=== PATIENT | female | born 1955 | race Caucasian/White ===

== ENCOUNTER → 2019-07-08 13:57 | Outpatient (BNVA) | payer MEDICARE, MEDICAID, SELFPAY | PROVIDERS: PCP Nurse Practitioner Family; Visit Provider Nurse Practitioner | DX: G89.29 Other chronic pain (principal); M48.061 Spinal stenosis, lumbar region without neurogenic claudication; M51.06 Intervertebral disc disorders with myelopathy, lumbar region; M47.817 Spondylosis without myelopathy or radiculopathy, lumbosacral region; M53.3 Sacrococcygeal disorders, not elsewhere classified; R20.2 Paresthesia of skin; M25.30 Other instability, unspecified joint; Z79.891 Long term (current) use of opiate analgesic | CPT/HCPCS: 99213; 99214 ==

== ENCOUNTER → 2019-09-02 14:13 | Outpatient (BNVA) | payer MEDICARE, MEDICAID, SELFPAY | PROVIDERS: PCP Nurse Practitioner Family; Visit Provider Nurse Practitioner | DX: G89.29 Other chronic pain (principal); M54.5 Low back pain; F17.210 Nicotine dependence, cigarettes, uncomplicated; Z79.891 Long term (current) use of opiate analgesic | CPT/HCPCS: 99213 ==

== ENCOUNTER → 2019-11-05 14:24 | Outpatient (BNVA) | payer MEDICARE, MEDICAID, SELFPAY | PROVIDERS: PCP Nurse Practitioner Family; Visit Provider Anesthesiology | DX: G89.29 Other chronic pain (principal); M47.817 Spondylosis without myelopathy or radiculopathy, lumbosacral region; M51.06 Intervertebral disc disorders with myelopathy, lumbar region; M48.061 Spinal stenosis, lumbar region without neurogenic claudication; M25.30 Other instability, unspecified joint; M53.3 Sacrococcygeal disorders, not elsewhere classified; F17.210 Nicotine dependence, cigarettes, uncomplicated; Z79.891 Long term (current) use of opiate analgesic | CPT/HCPCS: 99214 ==

== ENCOUNTER → 2020-01-21 12:54 | Outpatient (BNVA) | payer MEDICARE, MEDICAID, SELFPAY | PROVIDERS: PCP Nurse Practitioner Family; Visit Provider Nurse Practitioner | DX: G89.29 Other chronic pain (principal); M51.06 Intervertebral disc disorders with myelopathy, lumbar region; M48.061 Spinal stenosis, lumbar region without neurogenic claudication; F17.210 Nicotine dependence, cigarettes, uncomplicated; Z79.891 Long term (current) use of opiate analgesic | CPT/HCPCS: 99214 ==

== ENCOUNTER → 2020-03-10 11:06 | Outpatient (BNVA) | payer MEDICARE, MEDICAID, SELFPAY | PROVIDERS: PCP Nurse Practitioner Family; Visit Provider Anesthesiology | DX: G89.29 Other chronic pain (principal); M51.06 Intervertebral disc disorders with myelopathy, lumbar region; M48.061 Spinal stenosis, lumbar region without neurogenic claudication; M47.817 Spondylosis without myelopathy or radiculopathy, lumbosacral region; M53.3 Sacrococcygeal disorders, not elsewhere classified; F17.210 Nicotine dependence, cigarettes, uncomplicated; Z79.891 Long term (current) use of opiate analgesic; Z71.6 Tobacco abuse counseling | CPT/HCPCS: 99214 ==

== ENCOUNTER → 2020-05-06 10:09 | Outpatient (BNVA) | payer MEDICARE, MEDICAID, SELFPAY | PROVIDERS: PCP Nurse Practitioner Family; Visit Provider Anesthesiology | DX: G89.29 Other chronic pain (principal); M51.06 Intervertebral disc disorders with myelopathy, lumbar region; M48.061 Spinal stenosis, lumbar region without neurogenic claudication; M47.817 Spondylosis without myelopathy or radiculopathy, lumbosacral region; M53.3 Sacrococcygeal disorders, not elsewhere classified; F17.210 Nicotine dependence, cigarettes, uncomplicated; Z79.891 Long term (current) use of opiate analgesic; Z71.6 Tobacco abuse counseling | CPT/HCPCS: 99214 ==

== ENCOUNTER → 2020-06-17 16:09 | Outpatient (BNVA) | payer MEDICARE, MEDICAID, SELFPAY | PROVIDERS: PCP Nurse Practitioner Family; Visit Provider Internal Medicine Cardiovascular Disease | DX: I50.9 Heart failure, unspecified (principal); M79.89 Other specified soft tissue disorders; I10 Essential (primary) hypertension; E78.5 Hyperlipidemia, unspecified | CPT/HCPCS: 80048; 83735; 83880 ==

== ENCOUNTER 2020-07-01 16:46 | Inpatient (IN) | payer MEDICARE, MEDICAID, SELFPAY ==
[2020-07-01 17:11] VITALS: BP 169/83; PULSE 107; RESP 24; TEMP 37.1; O2SAT 93; BMI 29.2
[2020-07-01 17:21] VITALS: BP 155/84; PULSE 106; RESP 24; O2SAT 93
[2020-07-01] MEDS: sodium chloride 0.9% 1,000 ML 999 ML IV (17:40)
[2020-07-01] MEDS: ondansetron 2 mg/ML SDV 2 mL 4 MG IVP (17:40)
--- NOTE | 2020-07-01 17:46 | ECG_ITS ---
[facility] Test Date: 2020-07-01 Pat Name: Annmarie El Department: Room: Gender: Female Insulation Hoseman: : 1955 Requested By: Jimmy Bauer Order Number: [id number] Ismael MD: Margarito Pearl M.D. Measurements Intervals [place] Rate: 100 P: 53 CO: 194 QRS: 49 QRSD: 101 T: 48 QT: 365 QTc: 471 Interpretive Statements SINUS TACHYCARDIA WITH OCCASIONAL SUPRAVENTRICULAR PREMATURE COMPLEXES INCOMPLETE RIGHT BUNDLE BRANCH BLOCK [90+ ms QRS DURATION, TERMINAL R IN V1/V2, 40+ ms S IN I/aVL/V4/V5/V6] SEPTAL MYOCARDIAL INFARCTION , OF INDETERMINATE AGE [40+ ms Q WAVE IN V1/V2] No previous ECG available for comparison Electronically Signed On 07-02-2020 18:30:10 SLACKLINE OPERATOR by Margarito Pearl M.D. [id number]
[2020-07-01 18:27] LABS: Basophils % 0.1 %; Eosinophils % 0.1 %; Hematocrit 39.9 % (37.0-47.0); Hemoglobin 12.9 g/dL (11.5-15.3); Lymphocytes # 0.8 10^3/uL (0.8-4.8); Lymphocytes % 10.5 %; Mean Corpuscular HGB Conc 32.3 g/dL (30.0-36.0); Mean Corpuscular Hemoglobin 34.9 pg (28.0-34.0); Mean Corpuscular Volume 107.8 fL (81-99); Mean Platelet Volume 11.3 fL (7.4-10.4); Monocytes # 0.4 10^3/uL (0.2-0.9); Monocytes % 5.6 %; Neutrophils # 6.02 10^3/uL (1.8-7.7); Neutrophils % 81.8 %; Nucleated Red Blood Cells % 0 %; Platelet Count 140 10^3/cmm (130-400); White Blood Count 7.4 10^3/uL (4.0-10.0)
[2020-07-01 18:39] LABS: Lactate (Lactic Acid level) 2.2 mmol/L (0.5-2.2)
[2020-07-01 18:41] LABS: Troponin T (5th) Once 22 ng/L (0-10)
[2020-07-01 18:47] VITALS: BP 155/84; PULSE 106; RESP 20; O2SAT 92
[2020-07-01 18:50] LABS: Albumin Level 2.9 g/dL (3.5-5.2); Alkaline Phosphatase 79 IU/L (35-105); Blood Urea Nitrogen 10 mg/dL (8-23); Calcium 8.2 mg/dL (8.5-10.5); Carbon Dioxide 30 mmol/L (22-29); Chloride 89 mmol/L (98-107); Globulin 2.3 g/dL (1.3-4.6); Glomerular Filtration Rate 72.2 mL/min (90-130); Glucose 326 mg/dL (65-115); Lipase 39 U/L (13-60); NT Pro B Type Natriuretic Pept 1208 pg/mL (0-125); Osmolality Calculated 282 mOsm/kg (285-295); Sodium 130 mmol/L (136-145); Total Bilirubin 0.4 mg/dL (0.15-1.2); Total Protein 5.2 g/dL (6.6-8.7)
[2020-07-01 18:55] LABS: Alanine Aminotransferase 22 U/L (0-33); Anion Gap 14.7 (5-19); Aspartate Amino Transferase 21 U/L (0-32); Potassium 3.7 mmol/L (3.5-5.1)
--- NOTE | 2020-07-01 19:25 | PC.NURSE ---
Patient tried to give urine sample, patient had diarrhea and contaminated sample.
--- NOTE | 2020-07-01 19:42 | CTR_ITS ---
PROCEDURE INFORMATION: Exam: CT Abdomen And Pelvis With Contrast Exam date and time: 07/01/2020 8:11 PM Age: 65 years old Clinical indication: Abdominal pain; Prior surgery; Surgery type: Appy; Additional info: Abdominal pain. Covid+ TECHNIQUE: Imaging protocol: Computed tomography of the abdomen and pelvis with intravenous contrast. Radiation optimization: All CT scans at this facility use at least one of these dose optimization techniques: automated exposure control; mA and/or kV adjustment per patient size (includes targeted exams where dose is matched to clinical indication); or iterative reconstruction. Contrast material: OMNI 300; Contrast volume: 95 ml; Contrast route: INTRAVENOUS (IV); COMPARISON: No relevant prior studies available. RADIATION DOSE METRICS: Total DLP (mGy-cm): 874.25 FINDINGS: Lungs: Multifocal airspace and ground-glass opacities are noted in the lungs compatible with the history of COVID-19 pneumonia. Heart: There is a small pericardial fluid collection present. The heart is enlarged. There is incidental lipomatosis infiltration of the intra-atrial septum of the heart. Mediastinal space: A small hiatal hernia is present. Liver: There is a diffuse decrease in hepatic parenchymal density, consistent with fatty infiltration. Gallbladder and bile ducts: Normal. No calcified stones. No ductal dilation. Pancreas: Normal. No ductal dilation. Spleen: Normal. No splenomegaly. Adrenal glands: Normal. No mass. Kidneys and ureters: There is no evidence of hydronephrosis. There is no evidence of renal calcifications. There is nonspecific inflammatory perinephric stranding. Stomach and bowel: There is no evidence of intestinal perforation or obstruction. There is no evidence of colitis/diverticulitis. Appendix: The appendix is not definitively identified. However, there is no CT evidence of a right lower quadrant inflammatory process. Intraperitoneal space: Unremarkable. No free air. No significant fluid collection. Vasculature: Unremarkable.No abdominal aortic aneurysm. Lymph nodes: Unremarkable.No enlarged lymph nodes. Urinary bladder: Unremarkable as visualized. Reproductive: There is a single benign fibroid in the uterus. The uterus, ovaries and adnexa are otherwise unremarkable. Bones/joints: There are moderate degenerative changes in the spine. There is a transitional lumbosacral junction and mild degenerative anterolisthesis of L5 on S1. Soft tissues: There is a fat-containing umbilical hernia. CT/CT abdomen pelvis w con* [id number] IMPRESSION: 1. Multifocal airspace and ground-glass opacities are noted in the lungs compatible with the history of COVID-19 pneumonia. 2. No acute abnormality is identified in the abdomen or pelvis. Radiation Dose CTDIVOL = (mGy): DLP = 874.25 (mGy-cm)
--- NOTE | 2020-07-01 19:43 | W.ED.NAVMDI ---
HPI - Nausea/Vomiting/Diarrhea General: Chief complaint: Nausea/Vomiting/Diarrhea Stated complaint: covid+/unable to eat Time Seen by Provider: 07/01/20 17:09 History of Present Illness: HPI Narrative: The patient is a 65-year-old female with past medical history of chronic low back pain who comes to the ER after being diagnosed with Covid 2 days ago. She was admitted at [facility] and says that they were worried about her potassium. She was discharged today and came here after she went home and still did not feel well. Her daughter reported that she was not behaving right. MD elicited complaint: nausea, vomiting, diarrhea and abdominal pain Associated nausea: Yes Associated abdominal pain: Yes Location of pain: Diffuse Severity: moderate Quality: cramping Exacerbating factors: none Associated symtoms: Reports cough, fatigue, headache(s), myalgias, nausea, short of breath and weakness; Denies anxiety, change in vision or chest pain Review of Systems General: Reports: 10 or more systems reviewed and unremarkable except in HPI and below Const: Reports: fever(s), chills, body aches and fatigue Eyes: Denies: change in vision, blurry vision or eye redness ENMT: Denies: throat pain, swelling of lips/tongue, ear or mastoid pain or nasal congestion Card: Denies: chest pain Resp: Denies: dyspnea, productive cough or non-productive cough GI: Reports: nausea : Denies: flank pain, difficulty voiding, urinary frequency or urinary urgency Musc: Denies: neck pain, back pain, extremity pain, joint pain, joint redness, limited range of motion or muscle weakness Skin/Breast: Denies: rash, pruritus, erythema, skin pain or skin tenderness Neuro: Reports: headache(s) Psych: Denies: anxiety or depression Endo: Denies: polyuria All/Imm: Denies: urticaria, throat swelling or tongue swelling PFSH ED PFSH: Medical History (Updated 07/01/20 @ 22:08 by Jimmy Bauer MD) Chronic low back pain Encounter for long-term use of opiate analgesic Hyperlipidemia 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 Joint instability Lumbosacral spondylosis without myelopathy Paresthesia of bilateral legs Sacroiliac pain Spinal stenosis of lumbar region Surgical History S/P appendectomy Family History Grandmother Diabetes Cancer Grandfather Diabetes Cancer Social History Smoking and tobacco status: current every day smoker cigarettes Packs smoked per day: 1 [ Other cigarette details: DOWN FROM 1 PPD ] Alcohol intake: never Marital status: History of recent travel: No Physical Exam Const: COMMON NORMALS: no acute distress, average body habitus, patient oriented x3, no limitations, healthy appearing, alert and well nourished GENERAL APPEARANCE: cooperative, comfortable, well kempt and well developed ORIENTATION/CONSCIOUSNESS: Yes awake, Yes oriented to person, Yes oriented to place and Yes oriented to time HENMT: COMMON NORMALS: normocephalic, external ears normal and Normal external nose present HEAD & SCALP: normal to inspection and normocephalic NOSE: Normal external nose present EXTERNAL EAR: Yes external ears normal MOUTH: Normal oral and palatal mucosa present THROAT: posterior oropharynx normal Eye: COMMON NORMALS: Equal, round and reactive pupils present and EOMs intact bilaterally GENERAL EYE: appearance normal, both eyes and all related structures PUPIL: Yes Equal, round and reactive pupils present Neck/C-Spine: COMMON NORMALS: full ROM, no lymphadenopathy, no meningeal signs and no JVD GENERAL: Yes normal visual inspection Lymph: LYMPHATIC: no lymphadenopathy noted Chest: COMMONS NORMALS: normal inspection of the chest and normal palpation of entire chest wall Resp: COMMON NORMALS: normal respiratory effort, No retractions, No use of accessory muscles, clear to auscultation bilaterally and percussion normal EFFORT & INSPECTION: Yes able to speak in complete sentences AUSCULTATION: clear to auscultation bilaterally PERCUSSION: percussion normal Cardio: COMMON NORMALS: no JVD, regular rate, regular rhythm, S1 normal heart sound present, S2 normal heart sound present and Peripheral pulses 2+ throughout RATE: regular rate RHYTHM: regular rhythm HEART SOUNDS: S1 normal heart sound present and S2 normal heart sound present PERIPHERAL PULSES: Peripheral pulses 2+ throughout GI: COMMON NORMALS: Normal to inspection, nondistended, normoactive bowel sounds present, Soft to palpation and no masses INSPECTION: Yes normal to inspection PALPATION: Yes Soft to palpation OTHER: Obese. Diffuse abdominal tenderness. : COMMON NORMALS: Yes no CVA tenderness BLADDER/KIDNEY EXAM: Yes no CVA tenderness Back/Pelvis: COMMON NORMALS: no CVA tenderness, thoracic and lumbar spine normal to inspection, no thoracic nor lumbar tenderness and thoraco-lumbar ROM normal Extremity: COMMON NORMALS: normal to inspection, full ROM, capillary refill normal, no joint enlargement and no pedal edema GENERAL: Yes normal exam except as noted Neuro: COMMON NORMALS: patient oriented x3, CN's II-XII intact bilaterally, moves all extremities, no focal motor deficits, no sensory deficits noted and gait normal SENSORIUM/ORIENTATION: Yes alert, Yes oriented to person, Yes oriented to place and Yes oriented to time MENINGEAL SIGNS: Yes no meningeal signs Psych: COMMON NORMALS: mental status grossly normal, Normal thought process present, cooperative, normal affect and speech normal APPEARANCE: Yes well kempt ATTITUDE: Yes calm SPEECH: Yes normal speech THOUGHT PROCESS: Normal thought process present Skin: COMMON NORMALS: no rashes or lesions noted GENERAL SKIN EXAM: no rashes or lesions noted Course Vital Signs: Vital signs: Vital Signs Temperature 98.8 F 07/01/20 17:11 Pulse Rate 98 07/01/20 20:09 Respiratory Rate 17 07/01/20 20:09 Blood Pressure 138/92 07/01/20 20:09 Pulse Oximetry 95 07/01/20 20:09 MDM - Nausea/Vomiting/Diarrhea MDM Narrative: Medical decision making narrative: The patient comes to the ER after being discharged today from [facility] for Covid. She is satting 88% on arrival and was placed on oxygen. She likely requires more length of stay. Discussed with Dr. Mckeon who accepts for admission. Differential Diagnosis: N/V/D differential diagnosis: Likely dehydration Lab Data: Labs: Lab Results 07/01/20 07/01/20 07/01/20 Range/Units 18:05 18:05 18:05 WBC 7.4 (4.0-10.0) 10^3/ uL RBC 3.70 L (4.1-5.3) 10^6/u L Hgb 12.9 (11.5-15.3) g/dL Hct 39.9 (37.0-47.0) % MCV 107.8 H (81-99) fL MCH 34.9 H (28.0-34.0) pg MCHC 32.3 (30.0-36.0) g/dL RDW 15.0 (12.1-15.1) % Plt Count 140 (130-400) 10^3/c mm MPV 11.3 H (7.4-10.4) fL Neut % (Auto) 81.8 % Lymph % (Auto) 10.5 % [place] % (Auto) 5.6 % Eos % (Auto) 0.1 % Baso % (Auto) 0.1 % Neut # (Auto) 6.02 (1.8-7.7) 10^3/u L Lymph # (Auto) 0.8 (0.8-4.8) 10^3/u L [place] # (Auto) 0.4 (0.2-0.9) 10^3/u L Eos # (Auto) 0.0 (0.0-0.8) 10^3/u L Baso # (Auto) 0.0 (0.0-0.1) 10^3/u L Nucleated RBC % (a uto) 0 % Nucleated RBCs # 0.0 /100WBC Sodium 130 L (136-145) mmol/L Potassium 3.7 (3.5-5.1) mmol/L Chloride 89 L (98-107) mmol/L Carbon Dioxide 30 H (22-29) mmol/L Anion Gap 14.7 (5-19) BUN 10 (8-23) mg/dL Creatinine 0.8 (0.5-0.9) mg/dL GFR Calculation 72.2 L (90-130) mL/min Glucose 326 H (65-115) mg/dL Calculated Osmolal ity 282 L (285-295) mOsm/k g Lactate 2.2 (0.5-2.2) mmol/L Calcium 8.2 L (8.5-10.5) mg/dL Total Bilirubin 0.4 (0.15-1.2) mg/dL AST 21 (0-32) U/L ALT 22 (0-33) U/L Alkaline Phosphata se 79 (35-105) IU/L Troponin T Gen 5 n g/L (0-10) ng/L NT-Pro-B Natriuret Pep 1208 H (0-125) pg/mL Total Protein 5.2 L (6.6-8.7) g/dL Albumin 2.9 L (3.5-5.2) g/dL Globulin 2.3 (1.3-4.6) g/dL Lipase 39 (13-60) U/L // Range/Units 18:05 WBC (4.0-10.0) 10^3/ uL RBC (4.1-5.3) 10^6/u L Hgb (11.5-15.3) g/dL Hct (37.0-47.0) % MCV (81-99) fL MCH (28.0-34.0) pg MCHC (30.0-36.0) g/dL RDW (12.1-15.1) % Plt Count (130-400) 10^3/c mm MPV (7.4-10.4) fL Neut % (Auto) % Lymph % (Auto) % [place] % (Auto) % Eos % (Auto) % Baso % (Auto) % Neut # (Auto) (1.8-7.7) 10^3/u L Lymph # (Auto) (0.8-4.8) 10^3/u L [place] # (Auto) (0.2-0.9) 10^3/u L Eos # (Auto) (0.0-0.8) 10^3/u L Baso # (Auto) (0.0-0.1) 10^3/u L Nucleated RBC % (a uto) % Nucleated RBCs # /100WBC Sodium (136-145) mmol/L Potassium (3.5-5.1) mmol/L Chloride (98-107) mmol/L Carbon Dioxide (22-29) mmol/L Anion Gap (5-19) BUN (8-23) mg/dL Creatinine (0.5-0.9) mg/dL GFR Calculation (90-130) mL/min Glucose (65-115) mg/dL Calculated Osmolal ity (285-295) mOsm/k g Lactate (0.5-2.2) mmol/L Calcium (8.5-10.5) mg/dL Total Bilirubin (0.15-1.2) mg/dL AST (0-32) U/L ALT (0-33) U/L Alkaline Phosphata se (35-105) IU/L Troponin T Gen 5 n g/L 22 H (0-10) ng/L NT-Pro-B Natriuret Pep (0-125) pg/mL Total Protein (6.6-8.7) g/dL Albumin (3.5-5.2) g/dL Globulin (1.3-4.6) g/dL Lipase (13-60) U/L Discharge Plan Discharge Patient Disposition: Admitted As Inpatient Clinical Impression: COVID-19, Hypoxia Condition: Stable Coding Level of Care Code ED Telemetry Monitor for Luis Manuelg Fwd Exam Comprehensive
[2020-07-01] MEDS: HYDROcodone-acetaminophen 5-325 mg Tablet 1 TAB PO (20:03)
[2020-07-01 20:09] VITALS: BP 138/92; PULSE 98; RESP 17; O2SAT 95
[2020-07-01] MEDS: iohexol 300 mg/mL 100 mL Btl IV (20:23)
--- NOTE | 2020-07-01 21:30 | PM.HP ---
Providers/Chief Complaint Primary Care Provider: ANDREA Sargent Chief Complaint: covid+/unable to eat History of Present Illness Annmarie El is a 65 year old female who has history of hypothyroidism, panic attacks, was recently started on Lasix for leg swelling, magnesium was added secondary to hypomagnesemia, also on gabapentin and tramadol along [place] presented today for worsening confusion. Patient was recently discharged from [facility] today. Patient is stating that she was tested positive with COVID-19 antigen 4 days ago at [facility]. She was there for 4 days but not sure whether she received any treatment, she is not able to give me any details, she is a poor historian. She was emotionally very labile during my evaluation. turned off oxygen, she was saturating 93 to 94% on room air, but she was very weak and lethargic to ambulate on her own. Patient is stating that her symptoms never improved after her discharge from the [facility]. She was not discharged on any antibiotics, steroids or oxygen. She has been extremely lethargic and fatigued, she lives alone and is very anxious about her COVID-19 pneumonia and worsening weakness. She also gets panic attack thinking she might of this virus and no one will be able to help her. She has a daughter who is willing to take care of her when she is more stable to ambulate Patient is denying chest pain, diarrhea, dysuria, sputum production, endorsing back pain and shortness of breath on exertion Diagnostics in the ER revealed normal hemodynamics, normal CBC and BMP, mild hypokalemia, hyperglycemia, pseudo-hyponatremia, BNP 1200 however clinically does not look fluid overloaded Abdomen pelvis CT scan was done which is unremarkable lower zone of the lungs revealing COVID-19 groundglass opacities bilaterally. At the time my evaluation she was on 1 L nasal cannula, which I turned off, she was saturating 93% on room air. Review of Systems Const: Reports: chills, body aches and fatigue; Denies: fever(s) Eyes: Denies: change in vision ENMT: Reports: hoarseness; Denies: throat pain Card: Reports: dyspnea on exertion; Denies: chest pain, swelling of feet/ankles, syncope, pre-syncope or orthopnea Resp: Reports: dyspnea and non-productive cough; Denies: productive cough GI: Reports: nausea and diarrhea (Patient endorsing chronic diarrhea); Denies: abdominal pain : Denies: flank pain Musc: Reports: back pain Skin/Breast: Denies: lesions Neuro: Reports: weakness in extremities and difficulty walking; Denies: headache(s) Psych: Reports: anxiety, panic attacks, irritability and paranoia Endo: Denies: polyuria Isaias/Lymph: Denies: easy bruising All/Imm: Denies: urticaria Medications/Allergies Home Medications Medication Instructions Recorded Confirmed Last Taken Type budesonide 3 mg 3 mg PO TID each 06/27/19 07/01/20 Unknown History capsule,delayed,extended release levothyroxine 100 mcg capsule 100 mcg PO DAILY 06/27/19 07/01/20 Unknown History simvastatin 20 mg tablet 20 mg PO DAILY 06/27/19 07/01/20 Unknown History venlafaxine 100 mg tablet 100 mg PO BID 06/27/19 07/01/20 Unknown History venlafaxine 25 mg tablet 25 mg PO BID 06/27/19 07/01/20 Unknown History glipizide 5 mg tablet, extended 5 mg PO ONCE tab 07/08/19 07/01/20 Unknown History release 24 hr trazodone 150 mg tablet 150 mg PO BEDTIME tab 07/08/19 07/01/20 Unknown History cyclobenzaprine 10 mg tablet 10 mg PO TID PRN 30 Days #90 tab 05/06/20 07/01/20 Unknown Rx gabapentin 300 mg capsule 300 mg PO TID 30 Days #90 cap 05/06/20 07/01/20 Unknown Rx amlodipine 5 mg tablet 2.5 mg PO DAILY #90 tab 06/17/20 07/01/20 Unknown Rx furosemide 20 mg tablet 20 mg PO DAILY #30 tab 06/17/20 07/01/20 Unknown Rx hydrochlorothiazide 12.5 mg tablet 50 mg .ROUTE .COMPLEX tab 06/17/20 07/01/20 Unknown History potassium chloride 20 mEq 20 meq PO DAILY #30 tab 06/17/20 07/01/20 Unknown Rx tablet,extended release magnesium chloride 64 mg 64 mg PO DAILY #90 tab 06/18/20 07/01/20 Unknown Rx (magnesium chloride) tablet,delayed release azithromycin 500 mg PO DAILY 07/01/20 07/01/20 Unknown History cefdinir 300 mg PO BID 07/01/20 07/01/20 Unknown History hydrocodone-acetaminophen See Rx Instructions .ROUTE .COMPLEX 07/01/20 07/01/20 Unknown History lisinopril 20 mg PO DAILY 07/01/20 07/01/20 Unknown History tramadol See Rx Instructions .ROUTE .COMPLEX 07/01/20 07/01/20 Unknown History Allergies Allergy/AdvReac Type Severity Reaction Status Date / Time Sulfa (Sulfonamide Allergy hives Verified 07/01/20 17:11 Antibiotics) PFSH Acute PFSH: Medical History (Updated 07/02/20 @ 00:53 by Edilberto Mckeon MD) Chronic low back pain Encounter for long-term use of opiate analgesic Hyperlipidemia 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 Joint instability Lumbosacral spondylosis without myelopathy Paresthesia of bilateral legs Sacroiliac pain Spinal stenosis of lumbar region Surgical History S/P appendectomy Family History Grandmother Diabetes Cancer Grandfather Diabetes Cancer Social History Smoking and tobacco status: current every day smoker cigarettes Packs smoked per day: 1 [ Other cigarette details: DOWN FROM 1 PPD ] Alcohol intake: never Marital status: History of recent travel: No Vitals/I&O/Wt Last Vital Signs Temp 98.8 F 07/01/20 17:11 Pulse 98 07/01/20 20:09 Resp 17 07/01/20 20:09 BP 138/92 07/01/20 20:09 Pulse Ox 95 07/01/20 20:09 07/01/20 07/01/20 07/01/20 06:59 14:59 22:59 Intake Total 1000 / 1000 Balance 1000 / 1000 Weight last 48 hrs Weight 74.843 kg Physical Exam Narrative: EXAM NARRATIVE: middle-aged female who appears more than stated age Was laying in right lateral position Saturating 90 to 94% on room air, oxygen was turned off No active chest pain, S1, S2 no murmur appreciated No signs of heart failure lower extremity no edema gangrene or ulcer Bilateral breath sound without adventitious rhonchi or crackles Patient complaining of back pain No signs of cauda equina Abdomen soft nontender bowel sound present Appears very anxious and irritable Emotionally labile No active joint swelling however complaining of back pain EOMI, PERRLA No neurological deficit GCS 15 awake alert oriented x3 Generalized malaise Data : 07/01/20 18:05 07/01/20 18:05 A&P Assessment and plan (1) COVID-19: Status: Acute (2) Hypoxia: Status: Acute (3) Fatigue: Status: Acute Additional A&P Information COVID-19 pneumonia Patient is stating that she was diagnosed 4 days ago at [facility] Currently saturating well on room air at 93 to 94% ever initially she was put on 2 L for hypoxia on arrival I would not repeat Covid antigen testing at this point Patient is not able to give me any details regarding [facility] medical management I would keep her on Decadron for now 6 mg p.o. daily Chest x-ray not done in the ER, will request D-dimer and chest x-ray Acute hypoxic respiratory failure Initially required 2 L however at my evaluation she was saturating 93 to 94% on room air Monitor overnight, home O2 requirement before discharge Rule out PE, will follow up with D-dimer No acute respite distress Fatigue and generalized malaise I will check TSH, she has mild hyponatremia and hypokalemia, she takes hydrochlorothiazide which I will discontinue, she also on multiple psychotropic medications along opioids, I do believe these medications with underlying COVID-19 pneumonia is playing a role for her worsening fatigue Physical therapy evaluation in the morning Low back pain No signs of cauda equina, I would continue [place] for now we will add bowel regimen Reduce gabapentin dose, hold tramadol She has grade 1 anterolisthesis L4-L5 moderate central canal stenosis, central canal stenosis L4-L5 due to disc bulge with anterolisthesis slight impingement of transverse L5 nerve root Hypokalemia: We will give her 20 mEq p.o. KCl Hold hydrochlorothiazide High BNP Rule out PE, echo 2018 reveals ejection fraction 65% without diastolic dysfunction Currently patient is euvolemic, hold Lasix and potassium supplementation at this point Her Lasix was added by cardiology because of her lower extremity edema Hyperglycemia Does not carry diagnosis of diabetes I do believe this hyperglycemia secondary to steroid use, most likely steroids were given at [facility], will check A1c level we will keep her on insulin sliding scale for now Cardiac diet Full code DVT prophylaxis Lovenox Attestations Medical Necessity Statement*: I do believe patient will be discharged in less than 48 hours, overnight monitoring needed because of worsening fatigue, will need home O2 evaluation before discharge, patient lives alone and is very scared to go home because of her active COVID-19 pneumonia and above-mentioned reasons Time Spent in Patient Care: (>than 50% of time spent in counselling and/or direct pt care on unit). 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
--- NOTE | 2020-07-01 22:00 | PC.NURSE ---
Patient is anxious. Will turn stone circular sawyer light and ask for help. When asking the patient what she needs help with she states she doesn't know. Patient states she is anxious.
[2020-07-01 23:43] VITALS: BP 146/64; PULSE 90; RESP 17; TEMP 36.9; O2SAT 96
[2020-07-02] VITALS (12 sets, daily range): BP systolic 123–164; BP diastolic 69–97; PULSE 80–112; RESP 16–31; TEMP 36.6–37.7; O2SAT 90–98
[2020-07-02 00:36] LABS: Glucose Urine UA 2+ (Normal); Protein Urine Neg (Negative); Specific Gravity, Urine 1.005 (1.005-1.030); Urine Appearance Hazy (CLEAR); Urine Color Yellow (Yellow)
[2020-07-02 00:37] LABS: Add Urine Microscopic? YES; Bacteria Urine 1+ /hpf; Bilirubin Urine Neg (Negative); Blood Urine Neg (Negative); Ketones Urine 1+ (Negative); Leukocyte Esterase Urine 2+ (Negative); Mucus Urine TRACE /hpf; Nitrate Urine Negative (Negative); RBC Urine 0-4 /hpf (0-2); Urobilinogen Urine Norm (Negative); WBC Urine 15-25 /hpf (0-5)
[2020-07-02 00:38] LABS: Add Urine Culture? Yes
[2020-07-02] MEDS: LORazepam 2 mg/mL INJ 1 mL 0.5 MG IVP (01:33)
[2020-07-02] MEDS: potassium chloride ER 20 mEq Tablet PO (01:34)
[2020-07-02] MEDS: enoxaparin 40 mg/0.4 mL Syringe SUBCUT (01:34)
[2020-07-02 02:51] LABS: D Dimer 1.56 ug/mIFEU (0-0.59)
[2020-07-02 02:56] LABS: Estmated Average Glucose 232; Hemoglobin A1C 9.7 % (4.0-6.0)
[2020-07-02 02:58] LABS: Blood Urea Nitrogen 7 mg/dL (8-23); C Reactive Protein 85.1 mg/L (0.0-4.9); Calcium 8.5 mg/dL (8.5-10.5); Carbon Dioxide 38 mmol/L (22-29); Chloride 90 mmol/L (98-107); Glomerular Filtration Rate 84.2 mL/min (90-130); Glucose 193 mg/dL (65-115); Osmolality Calculated 281 mOsm/kg (285-295); Sodium 134 mmol/L (136-145)
[2020-07-02 03:05] LABS: Procalcitonin 0.13 ng/mL (0-0.5); Thyroid Stimulating Hormone 1.54 uIU/mL (0.27-4.20)
[2020-07-02 03:15] LABS: Magnesium 1.3 mg/dL (1.7-2.3)
--- NOTE | 2020-07-02 05:00 | PC.NURSE ---
Patient refusing to wear nasal cannula this morning. Keeps removing telemetry. Patient is alert and appropriate to answering questions. Uses call light frequently. Says she cannot reach her cup which is next to her hand. Patient has overbed table over the bed and she leans on it. Not orthopnic just sitting up in bed. No respiratory distress observed. No complaints of pain presently.
[2020-07-02] MEDS: HYDROcodone-acetaminophen 10-325 mg Tablet 1 TAB PO (06:12)
--- NOTE | 2020-07-02 06:47 | CT_ITS ---
WS: [id number] Exam: CT angio chest PE protcl [id number] Date/Time of Exam: 07/02/2020 6:52 AM Reason For Exam: PE DLP: 528.[address] scans at [facility] use at least one of these dose optimization techniques: automat ed exposure control; mA and/or kV adjustment per patient size (includes targeted exams where dose is matched to clinical indication); or iterative reconstruction. No sign of acute PE. The thoracic aorta is normal in caliber. Mild mediastinal and perihilar lymphade nopathy. No pleural or pericardial effusion seen. The airway is patent. There are scattered patchy gr oundglass infiltrates throughout both lungs suggesting pneumonia. Covid pneumonia could have this livan earance. The lungs are fully expanded. No destructive bone lesions are chest wall defects. CT/CT angio chest PE protcl [id number] IMPRESSION: 1. No indication of acute PE. 2. Scattered groundglass infiltrates noted throughout both lungs suggesting pne umonia. Covid pneumonia can have this appearance. 3. Mild mediastinal and perihilar lymphadenopathy.
--- NOTE | 2020-07-02 07:00 | XR_ITS ---
WS: [id number] Exam: XR chest 1V portable [id number] Date/Time of Exam: 07/02/2020 7:00 AM Reason For Exam: covid No priors. There are patchy groundglass infiltrates throughout the mid and lower lung zones most marked on the l eft. The lungs are fully inflated. Cardiomediastinal structures are unremarkable for technique. No pl eural effusions. Regional bony elements are intact. Monitoring leads superimpose the chest. XR/XR chest 1V portable [id number] IMPRESSION: 1. Bilateral pulmonary infiltrates suggesting pneumonia.
[2020-07-02 07:33] LABS: Glucose Point of Care 193 mg/dL (70-110)
[2020-07-02] MEDS: iohexol 350 mg/mL 100 mL Btl IV (07:48)
[2020-07-02] MEDS: levothyroxine 100 mcg Tablet PO (08:51)
[2020-07-02] MEDS: dexamethasone 4 mg Tablet 6 MG PO (08:51)
[2020-07-02] MEDS: sennosides-docusate Tablet 1 TAB PO (08:52)
[2020-07-02] MEDS: gabapentin 100 mg Capsule PO ×3 (08:52→21:09)
[2020-07-02] MEDS: amlodipine 5 mg Tablet 2.5 MG PO (08:53)
[2020-07-02] MEDS: lisinopril 20 mg Tablet PO (08:53)
[2020-07-02] MEDS: venlafaxine 75 mg Tablet 25 MG PO ×2 (08:53→17:27)
[2020-07-02] MEDS: pneumococcal (23 valent) SDV 0.5 mL IM (08:54)
--- NOTE | 2020-07-02 09:17 | PC.CHAP ---
Pastoral Care Encounter/Spiritual Assessment Type of Contact [] Declined internet webmaster visit [] Patient/Family/Request visit [] Outpatient visit [] Follow-up visit [] Physician referral [] Code/Alert [] Routine visit [] Staff referral [] Actively dying [] Patient sleeping [] Family support [] [] Out of room [] Palliative care [] [] Receiving care in room [] Pre-surgical visit [] Trauma [] Long length of stay [] ICU visit [x] Other: isolation Relational/Emotional Strength [] Patient feels connected with others/family/visitors/staff [] Distress [] Loneliness/isolation [] Abandonment Spirituality of Patient [] Person of Jinny [] Attends Restoration of their Jinny [] Believes in Prayer [] Reads Bible or Jew materials [] There are Spiritual issues to be addressed Mounted Police Interventions [x] Prayer [] Active listening [] Non-anxious presence [] Spiritual/emotional support [] Crisis/trauma care [] Spiritual counseling [] Bereavement support [] Provided bereavement packet [] Provided Bible/devotional materials [] Provided toy/stuffed animal, coloring book to patient or family member [] Provided Communion [] Anointing/[place] [] Salvation [x] Completed spiritual assessment [] Other: Impact on Illness or Injury [] Angry [] Fearful [] Anxious [] Often cries [] Exhaustion [] Unable to work [] Unable to attend pentecostal [] Unable to walk/stand [] Unable to read [] Unable to drive [] Unable to eat/drink [] Unable to sleep [] Unable to be with family [] Patient intubated [] Other: Summary Time spent with patient
[2020-07-02 12:11] LABS: Glucose Point of Care 102 mg/dL (70-110)
[2020-07-02 17:02] LABS: Glucose Point of Care 321 mg/dL (70-110)
--- NOTE | 2020-07-02 17:45 | P.PN_ITS ---
Subjective Subjective: Interval history: T-max 99.3. Dynamically stable. Overnight labs and H&P reviewed. 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: no focal neuro deficits Data : 07/01/20 18:05 07/02/20 02:27 A&P Assessment and plan (1) COVID-19: Status: Acute (2) Hypoxia: Status: Acute (3) Fatigue: Status: Acute Additional A&P Information COVID-19 pneumonia Patient is stating that she was diagnosed 4 days ago at [facility] Currently saturating well at 2 lpm for hypoxia CTA chest without PE, B/L GGOs suggestive of Covid 19 pneumonia Acute hypoxic respiratory failure secondary to covid 19 PNA continue dexamethasone 6mg daily Low back pain No signs of cauda equina She has grade 1 anterolisthesis L4-L5 moderate central canal stenosis, central canal stenosis L4-L5 due to disc bulge with anterolisthesis slight impingement of transverse L5 nerve root Hypokalemia: repleted Hold hydrochlorothiazide High BNP Rule out PE, echo 2018 reveals ejection fraction 65% without diastolic dysfunction Currently patient is euvolemic, hold Lasix and potassium supplementation at this point Her Lasix was added by cardiology because of her lower extremity edema Hyperglycemia: newly diagnosed DM with A1c 9.7, will need insulin on discharge Cardiac diet Full code DVT prophylaxis Lovenox Attestations Medical Necessity Statement*: COVID 19 pneumonia , hypoxia Coding Level of Care Code Acute Editor [place] for Chg Fwd Diagnoses COVID-19 U07.1 Hypoxia R09.02 Fatigue R53.83
[2020-07-02 20:27] LABS: Glucose Point of Care 211 mg/dL (70-110)
[2020-07-02] MEDS: remdesivir 200 MG in sodium chloride 0.9% (100 ml) 100 ML 100 MG IV (21:09)
--- NOTE | 2020-07-02 22:21 | PC.NURSE ---
PT C/O OF SEVERE GEN BODY PAIN. PT HAS CALLED OUT SEVERAL TIMES. WHEN THIS NURSE WENT INTO ROOM TO ASSESS PAIN, PT DENIED PAIN. PT STATES THAT THEY HAVE A HARD TIME SLEEPING AND WANTS SOMETHING FOR PAIN AND SOMETHING TO HELP SLEEP. PT WAS FALLING ASLEEP WHILE TALKING. WILL CONTINUE TO MONITOR.
[2020-07-03] MEDS: enoxaparin 40 mg/0.4 mL Syringe SUBCUT (01:18)
--- NOTE | 2020-07-03 02:44 | PC.NURSE ---
PT RESTING IN BED. PT DENIES PAIN AT THIS TIME. WILL CONTINUE TO MONITOR.
[2020-07-03 04:00] VITALS: BP 159/80; PULSE 80; RESP 26; TEMP 36.8; O2SAT 96
--- NOTE | 2020-07-03 04:20 | PC.NURSE ---
PT WAS ON THE CALL LIGHT FREQUENTLY AT THE BEGINNING OF THE SHIFT, BUT CALMED DOWN. PT DENIES. WILL CONTINUE TO MONITOR.
[2020-07-03 06:43] LABS: Glucose Point of Care 196 mg/dL (70-110)
[2020-07-03 06:55] LABS: Basophils % 0.1 %; Hematocrit 37.5 % (37.0-47.0); Hemoglobin 12.6 g/dL (11.5-15.3); Lymphocytes # 0.9 10^3/uL (0.8-4.8); Lymphocytes % 12.3 %; Mean Corpuscular HGB Conc 33.6 g/dL (30.0-36.0); Mean Corpuscular Hemoglobin 34.2 pg (28.0-34.0); Mean Corpuscular Volume 101.9 fL (81-99); Mean Platelet Volume 10.5 fL (7.4-10.4); Monocytes # 0.6 10^3/uL (0.2-0.9); Monocytes % 8.7 %; Neutrophils % 77.2 %; Nucleated Red Blood Cells % 0 %; Platelet Count 165 10^3/cmm (130-400); Red Blood Count 3.68 10^6/uL (4.1-5.3); Red Cell Distribution Width 14.3 % (12.1-15.1); White Blood Count 7.1 10^3/uL (4.0-10.0)
[2020-07-03 07:07] LABS: Alanine Aminotransferase 18 U/L (0-33); Albumin Level 2.5 g/dL (3.5-5.2); Alkaline Phosphatase 68 IU/L (35-105); Aspartate Amino Transferase 12 U/L (0-32); Blood Urea Nitrogen 10 mg/dL (8-23); Calcium 8.7 mg/dL (8.5-10.5); Carbon Dioxide 33 mmol/L (22-29); Chloride 93 mmol/L (98-107); Globulin 2.8 g/dL (1.3-4.6); Glomerular Filtration Rate 84.2 mL/min (90-130); Glucose 201 mg/dL (65-115); Osmolality Calculated 285 mOsm/kg (285-295); Sodium 135 mmol/L (136-145); Total Bilirubin 0.3 mg/dL (0.15-1.2); Total Protein 5.3 g/dL (6.6-8.7)
[2020-07-03 08:00] VITALS: BP 161/91; PULSE 83; RESP 23; O2SAT 97
[2020-07-03] MEDS: venlafaxine 75 mg Tablet 25 MG PO ×2 (08:03→17:22)
[2020-07-03] MEDS: dexamethasone 4 mg Tablet 6 MG PO (08:05)
[2020-07-03] MEDS: lisinopril 20 mg Tablet PO (08:05)
[2020-07-03] MEDS: gabapentin 100 mg Capsule PO ×3 (08:06→20:23)
[2020-07-03] MEDS: levothyroxine 100 mcg Tablet PO (08:06)
[2020-07-03] MEDS: HYDROcodone-acetaminophen 10-325 mg Tablet 1 TAB PO (08:06)
[2020-07-03] MEDS: amlodipine 5 mg Tablet 2.5 MG PO (08:07)
[2020-07-03 12:08] LABS: Glucose Point of Care 170 mg/dL (70-110)
[2020-07-03] MEDS: lidocaine 1% INJ 20 mL 5 ML IV (12:32)
[2020-07-03] MEDS: potassium chloride premix 100 ML 25 MEQ IV ×2 (12:33→18:59)
[2020-07-03 14:01] VITALS: PULSE 90; RESP 15; O2SAT 96
[2020-07-03 15:02] VITALS: BP 144/69; PULSE 75; RESP 13; TEMP 37.1; O2SAT 98
--- NOTE | 2020-07-03 15:57 | PM.PN ---
Subjective Subjective: Interval history: Saturating 98% on room air today. Patient denies any new complaints. Intermittently noted to be tachycardic with heart rate of 100, patient reports being extremely anxious, cries at the thought of returning home. 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 daily Acute hypoxic respiratory failure secondary to covid 19 PNA continue dexamethasone 6mg daily Low back pain No signs of cauda equina She has grade 1 anterolisthesis L4-L5 moderate central canal stenosis, central canal stenosis L4-L5 due to disc bulge with anterolisthesis slight impingement of transverse L5 nerve root Hypokalemia: repleted with 80 mEq IV Hold hydrochlorothiazide hello Hyperglycemia: newly diagnosed DM with A1c 9.7, will need insulin on discharge blood sugar currently well controlled Cardiac diet Full code DVT prophylaxis Lovenox Attestations Medical Necessity Statement*: COVID 19 pneumonia, on iv remdisivir Coding Level of Care Code Acute Telephonic Rn for [facility] Fw Diagnoses COVID-19 U07.1 Hypoxia R09.02 Fatigue R53.83
[2020-07-03 17:01] LABS: Glucose Point of Care 368 mg/dL (70-110)
[2020-07-03] MEDS: ascorbic acid 500 mg Tablet PO (17:23)
[2020-07-03] MEDS: acetaminophen 325 mg Tablet 650 MG PO (18:02)
[2020-07-03] MEDS: remdesivir 100 MG in sodium chloride 0.9% (100 ml) 100 ML IV (18:03)
[2020-07-03 18:59] VITALS: BP 155/78; PULSE 88; RESP 21; TEMP 37.1; O2SAT 97
[2020-07-03 20:50] LABS: Glucose Point of Care 282 mg/dL (70-110)
[2020-07-03] MEDS: LORazepam 2 mg/mL INJ 1 mL 0.5 MG IVP (22:28)
[2020-07-03 23:40] VITALS: BP 154/62; PULSE 83; RESP 20
[2020-07-04] VITALS (8 sets, daily range): BP systolic 146–172; BP diastolic 61–98; PULSE 78–93; RESP 16–22; TEMP 36.4–36.8; O2SAT 94–99
[2020-07-04] MEDS: enoxaparin 40 mg/0.4 mL Syringe SUBCUT (01:30)
--- NOTE | 2020-07-04 03:18 | PC.NURSE ---
PT HAD AN UNEVENTFUL NIGHT. PT DID C/O OF SOME INCREASED ANXIETY. FREEZER ASSISTANT NURSE GAVE PRN ATIVAN. PT HAS RESTED WITH EYES CLOSED. WILL CONTINUE TO MONITOR.
[2020-07-04 06:24] LABS: Glucose Point of Care 150 mg/dL (70-110)
[2020-07-04 06:44] LABS: Basophils % 0.1 %; Hematocrit 38.1 % (37.0-47.0); Hemoglobin 12.7 g/dL (11.5-15.3); Mean Corpuscular HGB Conc 33.3 g/dL (30.0-36.0); Mean Corpuscular Hemoglobin 34.5 pg (28.0-34.0); Mean Corpuscular Volume 103.5 fL (81-99); Mean Platelet Volume 10.6 fL (7.4-10.4); Monocytes # 0.7 10^3/uL (0.2-0.9); Monocytes % 9.4 %; Neutrophils # 5.82 10^3/uL (1.8-7.7); Neutrophils % 75.1 %; Nucleated Red Blood Cells % 0 %; Platelet Count 186 10^3/cmm (130-400); Red Blood Count 3.68 10^6/uL (4.1-5.3); Red Cell Distribution Width 14.5 % (12.1-15.1); White Blood Count 7.8 10^3/uL (4.0-10.0)
--- NOTE | 2020-07-04 07:35 | PC.NURSE ---
patient resting in bed this morning. assessment was performed and charted. patient denied any needs at this time. call light was in reach.
[2020-07-04 08:00] LABS: Alanine Aminotransferase 15 U/L (0-33); Albumin Level 2.8 g/dL (3.5-5.2); Alkaline Phosphatase 69 IU/L (35-105); Anion Gap 14.5 (5-19); Aspartate Amino Transferase 11 U/L (0-32); Blood Urea Nitrogen 15 mg/dL (8-23); C Reactive Protein 36.8 mg/L (0.0-4.9); Calcium 8.7 mg/dL (8.5-10.5); Carbon Dioxide 30 mmol/L (22-29); Chloride 99 mmol/L (98-107); Globulin 2.7 g/dL (1.3-4.6); Glomerular Filtration Rate 72.2 mL/min (90-130); Glucose 165 mg/dL (65-115); Osmolality Calculated 295 mOsm/kg (285-295); Potassium 3.5 mmol/L (3.5-5.1); Sodium 140 mmol/L (136-145); Total Bilirubin 0.3 mg/dL (0.15-1.2); Total Protein 5.5 g/dL (6.6-8.7)
[2020-07-04] MEDS: dexamethasone 4 mg Tablet 6 MG PO (08:33)
[2020-07-04] MEDS: acetaminophen 325 mg Tablet 650 MG PO (08:33)
[2020-07-04] MEDS: amlodipine 5 mg Tablet 2.5 MG PO ×2 (08:33→12:47)
[2020-07-04] MEDS: sennosides-docusate Tablet 1 TAB PO (08:33)
[2020-07-04] MEDS: ascorbic acid 500 mg Tablet PO ×2 (08:34→17:55)
[2020-07-04] MEDS: pantoprazole DR 40 mg Tablet PO (08:34)
[2020-07-04] MEDS: levothyroxine 100 mcg Tablet PO (08:34)
[2020-07-04] MEDS: gabapentin 100 mg Capsule PO ×3 (08:34→21:31)
[2020-07-04] MEDS: zinc gluconate 50 mg Tablet PO (08:34)
[2020-07-04] MEDS: lisinopril 20 mg Tablet PO (08:34)
--- NOTE | 2020-07-04 11:27 | PM.PN ---
Subjective Subjective: Interval history: Saturating 98% on2lpm. 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 daily Acute hypoxic respiratory failure, currently stable secondary to covid 19 PNA continue dexamethasone 6mg daily CRP tredning down 85 to 36, no leukocytosis Hypokalemia: repleted with 80 mEq IV yesterday, at 3.5 today, supplement 20po Hold hydrochlorothiazide, increase amlodipine to 5mg daily Hyperglycemia: newly diagnosed DM with A1c 9.7, will need insulin on discharge blood sugar currently well controlled Cardiac diet Full code DVT prophylaxis Lovenox Attestations Medical Necessity Statement*: iv remdisivir for COVID 19 pneumonia, intermittent fluctatuations in 02 sat, plan to complete5 days Coding Level of Care Code Acute Refrigeration Mechanic for Chg Fwd Diagnoses COVID-19 U07.1 Hypoxia R09.02 Fatigue R53.83
[2020-07-04] MEDS: venlafaxine 75 mg Tablet 112.5 MG PO ×2 (12:22→21:31)
--- NOTE | 2020-07-04 12:30 | PC.NURSE ---
patient stated that she was going to get up and use the restroom. patient educated that she needed to use the bedside commode due to having covid and not sharing a bathroom with another patient. patient verbalized an understanding. patient voided and had a bm in the bedside commode, it was emptied and patient was resting back in bed. Call light within reach.
[2020-07-04] MEDS: potassium chloride ER 20 mEq Tablet PO (12:47)
[2020-07-04 12:48] LABS: Glucose Point of Care 208 mg/dL (70-110)
[2020-07-04] MEDS: HYDROcodone-acetaminophen 10-325 mg Tablet 1 TAB PO (14:33)
[2020-07-04] MEDS: remdesivir 100 MG in sodium chloride 0.9% (100 ml) 100 ML IV (17:55)
[2020-07-04 18:11] LABS: Glucose Point of Care 304 mg/dL (70-110)
[2020-07-04 21:15] LABS: Glucose Point of Care 327 mg/dL (70-110)
--- NOTE | 2020-07-04 21:45 | PC.NURSE ---
PT IS RESTING IN BED. PT STATES THAT SHE IS HURTING. PT STATES THAT IT IS GEN BODY PAIN. WILL CONTINUE TO MONITOR.
[2020-07-05] VITALS (9 sets, daily range): BP systolic 158–195; BP diastolic 79–114; PULSE 74–88; RESP 15–23; TEMP 36.6–37; O2SAT 87–100
[2020-07-05] MEDS: enoxaparin 40 mg/0.4 mL Syringe SUBCUT (00:09)
[2020-07-05] MEDS: LORazepam 2 mg/mL INJ 1 mL 0.5 MG IVP ×2 (00:10→13:12)
--- NOTE | 2020-07-05 04:50 | PC.NURSE ---
PT HAD AN UNEVENTFUL NIGHT. PT DID C/O OF SOME INCREASED ANXIETY. ALUMINUM BOAT ASSEMBLY SUPERVISOR NURSE GAVE PRN ATIVAN. PT HAS RESTED WITH EYES CLOSED. WILL CONTINUE TO MONITOR.
[2020-07-05] MEDS: acetaminophen 325 mg Tablet 650 MG PO (06:10)
[2020-07-05 06:43] LABS: Glucose Point of Care 150 mg/dL (70-110)
[2020-07-05] MEDS: levothyroxine 100 mcg Tablet PO (08:05)
[2020-07-05] MEDS: ascorbic acid 500 mg Tablet PO (08:05)
[2020-07-05] MEDS: sennosides-docusate Tablet 1 TAB PO (08:06)
[2020-07-05] MEDS: zinc gluconate 50 mg Tablet PO (08:06)
[2020-07-05] MEDS: amlodipine 5 mg Tablet PO (08:06)
[2020-07-05] MEDS: dexamethasone 4 mg Tablet 6 MG PO (08:06)
[2020-07-05] MEDS: pantoprazole DR 40 mg Tablet PO (08:06)
[2020-07-05] MEDS: gabapentin 100 mg Capsule PO (08:06)
[2020-07-05] MEDS: venlafaxine 75 mg Tablet 112.5 MG PO (08:06)
[2020-07-05] MEDS: lisinopril 20 mg Tablet PO (08:07)
--- NOTE | 2020-07-05 10:07 | PC.NURSE ---
Verbal order from Dr. Pedroza to administer Remdesivir dose today at 1200 so patient can be discharged this afternoon. Pharmacy notified.
[2020-07-05] MEDS: hyDRALAzine 25 mg Tablet PO ×2 (11:18→13:54)
[2020-07-05 11:33] LABS: Glucose Point of Care 345 mg/dL (70-110)
--- NOTE | 2020-07-05 12:52 | DCPLANNER ---
IMM completed over the phone because pt is quarantined. Nurse, Yuly will give pt the IMM form to sign and will give pt a copy of form.
[2020-07-05] MEDS: remdesivir 100 MG in sodium chloride 0.9% (100 ml) 100 ML IV (13:13)
--- NOTE | 2020-07-05 14:00 | PC.NURSE ---
Discharge instructions given per the physician's orders. Patient verbalized understanding of teaching and returned demonstration of insulin administration. No further questions verbalized. Dr. Pedroza at bedside. BP elevated. Verbal order to administer 25 mg hydralazine once. RBVO. Nurse to continue to monitor .
--- NOTE | 2020-07-05 14:30 | PC.NURSE ---
Dr. Pedroza updated on patient condition. Patient BP 158/85. Patient cleared for dc by physician.
--- NOTE | 2020-07-05 16:05 | PC.RESP ---
Smoking Cessation information sent to patient.
--- NOTE | 2020-07-05 17:34 | P.DS_ITS ---
Discharge Providers Date of Admission: 07/02/20 18:21 Date of Discharge: July 05, 2020 Attending Provider at Admission: Edilberto Mckeon MD Attending Provider at Discharge: Anne Pedroza MD Primary Care Provider: ANDREA Sargent Diagnoses at Discharge Discharge Diagnosis (1) COVID-19: Status: Acute (2) Hypoxia: Status: Acute (3) Fatigue: Status: Acute Reason for Visit Reason for Visit: covid+/unable to eat Hospital Course Hospital Course Annmarie El is a 65 year old female who has history of hypothyroidism, panic attacks, was recently started on Lasix for leg swelling, magnesium was added secondary to hypomagnesemia, also on gabapentin and tramadol along [place] presented for worsening confusion. Patient was recently discharged from [facility]. [facility] was unable to provide any clear details as to her admission. Her hospital course here as below: COVID-19 pneumonia Diagnosed June 27 at [facility] Currently saturating well at 2 lpm for hypoxia and has been stable on the same during hospital course CTA chest without PE, B/L GGOs suggestive of Covid 19 pneumonia Compelted remdesivir treatment for 4 days and Dexamethasone 6 mg p.o. daily, being discharged with a steroid taper and Eliquis 2.5mg po BID for DVT/PE ppx. carefully weihed risks and benefits of a/c with [facility] pateint, though no clear data exits to support a/c ppx,there is other data for hypercoagulability state in Covid. She has elected to proceed with eliquis ppx for now , will carefully monitor for any bleeding manifestations. Acute hypoxic respiratory failure, currently stable secondary to covid 19 PNA Hypokalemia: resolved HTN: amlodipine incrased to 5mg po qd Hyperglycemia: uncontrolled DM with A1c 9.7, insulin lantus 8U at night time added to OHAs, follow up with PCP for the same Physical Exam Narrative: EXAM NARRATIVE: GEN: Awake, alert and oriented, no acute distress CVS: S1S2 N RS: CTA B/L Abd: Soft, nt/nd , bs+ SUPERVISOR BROADLOOM: no focal neuro deficits Discharge Data Data Completed and Pending: Completed Studies During Hospitalization Category Date Time Status CT abdomen pelvis w con* [id number] Stat Cat Scan 07/01/20 19:[address] angio chest PE protcl [id number] Rout ine Cat Scan 07/02/20 06:47 Completed XR chest 1V john ble [id number] Routine Exams 07/02/20 07:00 Completed Labs from last 24 hours 07/05/20 07/05/20 07/04/20 11:22 06:15 20:04 POC Glucose 345 H 150 H 327 H 07/04/20 17:58 POC Glucose 304 H Vitals: Last Vital Signs Temp 98.6 F 07/05/20 16:15 Pulse 88 07/05/20 16:15 Resp 18 07/05/20 16:15 BP 158/85 07/05/20 16:15 Pulse Ox 98 07/05/20 16:15 Discharge Plan Discharge Patient Disposition: Home Health Service Condition: Stable Prescriptions: New Ventolin HFA 90 mcg/actuation Hfa Aerosol Inhaler 2 puff inhalation Q4H.RESPIRATORY PRN (Reason: Shortness Of Breath) Qty: 18 RF: 0 Vitamin C 500 mg Tablet 500 mg PO BID Qty: 30 RF: 0 prednisone 10 mg tablets,dose pack See Rx Instructions .ROUTE .COMPLEX Qty: 21 RF: 0 pantoprazole 40 mg Tablet,Delayed Release (Dr/Ec) 40 mg PO DAILY 30 Days Qty: 30 RF: 0 Eliquis 2.5 mg tablet 2.5 mg PO BID 30 Days Qty: 60 RF: 0 Lantus Solostar U-100 Insulin 100 unit/mL (3 mL) insulin pen 8 unit SUBCUT QPM Qty: 15 RF: 0 Continued trazodone 150 mg tablet 150 mg PO BEDTIME RF: 0 glipizide 5 mg tablet extended release 24hr 5 mg PO ONCE RF: 0 hydrochlorothiazide 12.5 mg tablet 50 mg .ROUTE .COMPLEX RF: 0 furosemide 20 mg tablet 20 mg PO DAILY Qty: 30 RF: 1 potassium chloride 20 mEq tablet extended release 20 meq PO DAILY Qty: 30 RF: 2 venlafaxine 100 mg tablet 100 mg PO BID RF: 0 levothyroxine 100 mcg capsule 100 mcg PO DAILY RF: 0 simvastatin 20 mg tablet 20 mg PO DAILY RF: 0 venlafaxine 25 mg tablet 25 mg PO BID RF: 0 cyclobenzaprine 10 mg tablet 10 mg PO TID PRN (Reason: muscle spasm) 30 Days Qty: 90 RF: 1 gabapentin 300 mg capsule 300 mg PO TID 30 Days Qty: 90 RF: 1 magnesium chloride [Mag 64] 64 mg tablet,delayed release (DR/EC) 64 mg PO DAILY Qty: 90 RF: 3 lisinopril 20 mg tablet 20 mg PO DAILY RF: 0 hydrocodone-acetaminophen 10-325 mg tablet See Rx Instructions .ROUTE .COMPLEX RF: 0 tramadol 50 mg tablet See Rx Instructions .ROUTE .COMPLEX RF: 0 Changed amlodipine 5 mg tablet 5 mg PO DAILY Qty: 90 RF: 3 Discontinued budesonide 3 mg capsule,delayed,extend.release 3 mg PO TID RF: 0 cefdinir 300 mg capsule 300 mg PO BID RF: 0 azithromycin 500 mg tablet 500 mg PO DAILY RF: 0 Discharge Orders: Discharge Order (Routine); Ordered 07/05/20 Ordered By: Anne Pedroza Other Ambulatory Orders: DME: Oxygen (Order) Location: None Selected Ordered By: Anne Pedroza Referrals: [facility], [Staff Physician] - 7-10 days ([facility] will send you some paperwork for you to fill out and send back to them in a self addressed envelope. Then they will call you for a phone interview. She is sending that off today.) Deepika Campbell FNP [Primary Care Provider] - 4-7 days (YOU WILL HAVE AN APPOINTMENT WITH ANDREA SARGENT ON JULY 08 AT 10:00AM ) Discharge Diet: Usual diet and Diabetic Discharge Activity: Resume usual activity Patient Instructions: Albuterol (By breathing), Prednisone (By mouth), Ascorbic Acid (Vitamin C) (By mouth), Pantoprazole (By mouth), Insulin Glargine (Injection), Apixaban (By mouth), Using Oxygen at Home (DC), Hypoxia (GEN) Discharge Attestations Time Spent in Discharge Care*: greater than 30 min Specific Discharge Activities: educating patient, discussing with supportive employment case manager/social workers/dc planners, documenting/other paperwork and evaluating patient/reviewing data Quality Metrics Clinical Quality Measures During this hospital stay, did patient experience: None Coding Level of Care Code 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
== END 2020-07-05 16:16 | disposition home health service (06) | DRG 177 ==
LOC: ER 22:08 → CSU 07-02 00:07
PROVIDERS: Admitting Provider Internal Medicine; Emergency Provider Family Medicine; PCP Nurse Practitioner Family; Visit Provider Student in an Organized Health Care Education/Training Program
DX: U07.1 COVID-19 (principal); J12.89 Other viral pneumonia; J96.01 Acute respiratory failure with hypoxia; M47.16 Other spondylosis with myelopathy, lumbar region; E87.1 Hypo-osmolality and hyponatremia; M51.06 Intervertebral disc disorders with myelopathy, lumbar region; E03.9 Hypothyroidism, unspecified; F41.0 Panic disorder [episodic paroxysmal anxiety]; E83.42 Hypomagnesemia; G89.29 Other chronic pain; E78.5 Hyperlipidemia, unspecified; F17.210 Nicotine dependence, cigarettes, uncomplicated; E87.6 Hypokalemia; E11.65 Type 2 diabetes mellitus with hyperglycemia; T38.0X5A Adverse effect of glucocorticoids and synthetic analogues, initial encounter; I10 Essential (primary) hypertension; Z79.891 Long term (current) use of opiate analgesic
CPT/HCPCS: 12345; 36415; 36416; 71045; 71275; 74177; 80048; 80053; 81001; 82962; 83036; 83605; 83690; 83735; 83880; 84145; 84443; 84484; 85025; 85378; 86140; 87086; 87106; 90686; 90732; 93005; 96372; 97161; 99283; G0378; J1650; J1815; J2060; J2405; J3480; J7030; J8540; Q9967

== ENCOUNTER → 2020-07-22 14:04 | Outpatient (BNVA) | payer MEDICARE, MEDICAID, SELFPAY | PROVIDERS: PCP Nurse Practitioner Family; Visit Provider Nurse Practitioner | DX: G89.29 Other chronic pain (principal); M48.061 Spinal stenosis, lumbar region without neurogenic claudication; M51.06 Intervertebral disc disorders with myelopathy, lumbar region; M47.817 Spondylosis without myelopathy or radiculopathy, lumbosacral region; M53.3 Sacrococcygeal disorders, not elsewhere classified; R20.2 Paresthesia of skin; F17.210 Nicotine dependence, cigarettes, uncomplicated; Z79.891 Long term (current) use of opiate analgesic | CPT/HCPCS: 99213; 99214 ==

== ENCOUNTER → 2020-08-31 15:18 | Outpatient (BNVA) | payer MEDICARE, MEDICAID, SELFPAY | PROVIDERS: PCP Nurse Practitioner Family; Visit Provider Internal Medicine Cardiovascular Disease | DX: M79.89 Other specified soft tissue disorders (principal); I50.9 Heart failure, unspecified; E78.2 Mixed hyperlipidemia; I10 Essential (primary) hypertension | CPT/HCPCS: 80048; 83735; 83880 ==

== ENCOUNTER → 2020-09-16 12:59 | Outpatient (BNVA) | payer MEDICARE, MEDICAID, SELFPAY | PROVIDERS: PCP Nurse Practitioner Family; Visit Provider Anesthesiology | DX: G89.29 Other chronic pain (principal); M51.06 Intervertebral disc disorders with myelopathy, lumbar region; M47.817 Spondylosis without myelopathy or radiculopathy, lumbosacral region; M53.3 Sacrococcygeal disorders, not elsewhere classified; M48.061 Spinal stenosis, lumbar region without neurogenic claudication; F17.210 Nicotine dependence, cigarettes, uncomplicated; Z79.891 Long term (current) use of opiate analgesic; Z71.6 Tobacco abuse counseling | CPT/HCPCS: 99213; 99214 ==

== ENCOUNTER 2020-10-07 15:11 | Inpatient (IN) | payer MEDICARE, MEDICAID, SELFPAY ==
[2020-10-07] VITALS (7 sets, daily range): BP systolic 128–169; BP diastolic 68–79; PULSE 75–94; RESP 17–18; TEMP 36.3–36.9; O2SAT 94–98; BMI 35.3
--- NOTE | 2020-10-07 17:20 | P.HP_ITS ---
Providers/Chief Complaint Admitting Physician: Anne Pedroza MD Primary Care Provider: ANDREA Sargent Chief Complaint: ANKLE FX SURGERY History of Present Illness Annmarie El is a 65 year old female with a past medical history as noted below, recently admitted in July 2020 with COVID-19 pneumonia, discharged home where she continued to get home health. She presented to [facility] today after having sustained a fall at home. She does not remember the exact circumstances but feels she may have passed out, she remembers her legs giving way under her but not much else. Denies any dizziness chest pain dyspnea or palpitations. Oxygen requirements are at a baseline of 2 L/min since her COVID-19 diagnosis. She was taken to [facility] where she was diagnosed with a trimalleolar fracture of the left ankle which was reduced, she has immobilizer in place at this present time. On labs performed at [facility] she was noted to have BRENDA with creatinine of 3.5, last creatinine from August 31, 2020 at 1.0. She states she has had adequate p.o. intake over the past few days, however has been feeling a sense of generalized weakness over the past 1 week. Denies any sedation of any new medication, denies any change in her recent Lasix or lisinopril dosing. Hydrochlorothiazide was recently added on August 31, 2020 after cardiology follow-up, however patient is unable to tell me at this present time if she was taking this medication. Has not noticed any reduced urine output. Currently has a Trent catheter in place. She has received 150 mics fentanyl thus far, valium 2.5mg , was hypoglycemic with BS 60 upon presentation there, initially appeared somnolent upon of admission, however wakes up easily on calling name and is able to participate in conversation. Denies hypoglycemic episodes at home. states taking insulin as pr escribed. Review of Systems General: Reports: 10 or more systems reviewed and unremarkable except in HPI and below Const: Denies: fever(s), chills or body aches Eyes: Denies: change in vision, blurry vision or photophobia ENMT: Reports: hoarseness; Denies: throat pain, enlarged tonsils, odynophagia or nasal congestion Card: Denies: chest pain, palpitations, irregular heart rhythm, edema, swelling of feet/ankles, lightheadedness, pre-syncope, dyspnea on exertion or orthopnea Resp: Denies: dyspnea, productive cough, non-productive cough, wheezing, stridor, pain on inspiration, change in phlegm color, hemoptysis or chest congestion GI: Denies: abdominal pain, nausea, vomiting, hematemesis, coffee ground emesis, dysphagia, heartburn, diarrhea, constipation, GI cramping, change in stool character, hematochezia or melena : Denies: flank pain, difficulty voiding, dysuria, urinary frequency, urinary urgency, urinary hesitancy or hematuria Musc: Denies: neck pain, back pain, extremity pain, joint swelling, joint warmth or deformity Neuro: Denies: headache(s), numbness in extremities, weakness in extremities, sensory changes, difficulty walking, frequent falls, dizziness, vertigo, behavioral changes, Slurred speech present or seizure-like activity Psych: Denies: anxiety, depression, suicidal ideation or homicidal ideation Endo: Denies: polyuria, polydipsia, tired all the time, cold intolerance or hot flashes Isaias/Lymph: Denies: easy bruising or easy bleeding Medications/Allergies Home Medications Medication Instructions Recorded Confirmed Last Taken Type levothyroxine 100 mcg capsule 100 mcg PO DAILY 06/27/19 10/08/20 Unknown History venlafaxine 100 mg tablet 100 mg PO BID 06/27/19 10/08/20 Unknown History venlafaxine 25 mg tablet 25 mg PO BID 06/27/19 10/08/20 Unknown History glipizide 5 mg tablet, extended 5 mg PO .BREAKFAST & LUNCH tab 07/08/19 10/08/20 Unknown History release 24 hr trazodone 150 mg tablet 150 mg PO BEDTIME tab 07/08/19 10/08/20 Unknown History furosemide 20 mg tablet 20 mg PO DAILY #30 tab 06/17/20 10/08/20 Unknown Rx potassium chloride 20 mEq 20 meq PO DAILY #30 tab 06/17/20 10/08/20 Unknown Rx tablet,extended release magnesium chloride 64 mg 64 mg PO DAILY #90 tab 06/18/20 10/08/20 Unknown Rx (magnesium chloride) tablet,delayed release lisinopril 20 mg PO DAILY 07/01/20 10/08/20 Unknown History albuterol sulfate [Ventolin HFA] 2 puff INHALATION Q4H.RESPIRATORY 07/05/20 10/08/20 Unknown Rx PRN #18 g amlodipine 5 mg PO DAILY #90 tab 07/05/20 10/08/20 Unknown Rx insulin glargine [Lantus Solostar 8 unit SUBCUT QPM #15 ml 07/05/20 10/08/20 Unknown Rx U-100 Insulin] budesonide 3 mg 3 mg PO TID ea 07/22/20 10/08/20 Unknown History capsule,delayed,extended release cyclobenzaprine 10 mg tablet 10 mg PO TID PRN 30 Days #90 tab 07/22/20 10/08/20 Unknown Rx gabapentin 300 mg capsule 300 mg PO TID 30 Days #90 cap 07/22/20 10/08/20 Unknown Rx simvastatin 20 mg tablet 20 mg PO BID tab 07/22/20 10/08/20 Unknown History hydrochlorothiazide 12.5 mg tablet 37.5 mg PO DAILY tab 08/31/20 10/08/20 Unknown History tramadol 50 mg tablet 100 mg PO BID PRN 30 Days #120 tab 09/16/20 10/08/20 Unknown Rx apixaban [Eliquis] 2.5 mg PO BID 10/08/20 10/08/20 Unknown History hydrocodone-acetaminophen [[place]] 1 tab PO Q6H PRN 10/08/20 10/08/20 Unknown History metformin 1,000 mg PO BID 10/08/20 10/08/20 Unknown History Allergies Allergy/AdvReac Type Severity Reaction Status Date / Time Sulfa (Sulfonamide Allergy hives Verified 09/16/20 14:46 Antibiotics) PFSH Acute PFSH: Medical History (Updated 10/08/20 @ 17:55 by Anne Pedroza MD) Chronic low back pain Diabetes mellitus Encounter for long-term use of opiate analgesic Hyperlipidemia 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 Joint instability Lumbosacral spondylosis without myelopathy Paresthesia of bilateral legs Sacroiliac pain Spinal stenosis of lumbar region Surgical History S/P appendectomy Family History Grandmother Diabetes Cancer Grandfather Diabetes Cancer Social History Smoking and tobacco status: current every day smoker cigarettes Packs smoked per day: 1 [ Other cigarette details: DOWN FROM 1 PPD ] Alcohol intake: never Marital status: History of recent travel: No Vitals/I&O/Wt Weight last 48 hrs Weight 90.407 kg Physical Exam Const: COMMON NORMALS: no acute distress, average body habitus, patient oriented x3, no limitations, healthy appearing, alert and well nourished HENMT: COMMON NORMALS: normocephalic and atraumatic HEAD & SCALP: normocephalic and atraumatic Eye: COMMON NORMALS: Equal, round and reactive pupils present, EOMs intact bilaterally, conjunctivae normal and no scleral icterus CONJUNCTIVA: Yes conjunctivae normal PUPIL: Yes Equal, round and reactive pupils present Neck/C-Spine: COMMON NORMALS: no JVD Resp: COMMON NORMALS: normal respiratory effort, No retractions, No use of accessory muscles, clear to auscultation bilaterally and percussion normal AUSCULTATION: clear to auscultation bilaterally PERCUSSION: percussion normal Cardio: COMMON NORMALS: no JVD, regular rate, regular rhythm, S1 normal heart sound present, S2 normal heart sound present, No gallops present (Cardio), No clicks present (Cardio), No murmurs present (Cardio), No rub (Cardio) and Peripheral pulses 2+ throughout RATE: regular rate RHYTHM: regular rhythm HEART SOUNDS: S1 normal heart sound present and S2 normal heart sound present PERIPHERAL PULSES: Peripheral pulses 2+ throughout GI: COMMON NORMALS: Normal to inspection, nondistended, normoactive bowel sounds present, Soft to palpation, non-tender, No hepatosplenomegaly present, no masses and no bruits PALPATION: Yes Soft to palpation and Yes No hepatosplenomegaly present Extremity: COMMON NORMALS: normal to inspection, full ROM, capillary refill normal, no joint enlargement, no clubbing, cyanosis or edema, no calf tenderness and no pedal edema Neuro: COMMON NORMALS: patient oriented x3, CN's II-XII intact bilaterally, moves all extremities, no focal motor deficits, no sensory deficits noted, deep tendon reflexes 2+ bilaterally and gait normal SENSORIUM/ORIENTATION: Yes alert Psych: COMMON NORMALS: mental status grossly normal, Normal thought process present, cooperative, normal affect, speech normal, activity/motor behavior normal, denies hallucinations, denies homicidal ideation and denies suicidal ideation SPEECH: Yes normal speech THOUGHT PROCESS: Normal thought process present Skin: COMMON NORMALS: no rashes or lesions noted, no wounds, turgor normal, no jaundice, no petechiae and no mottling GENERAL SKIN EXAM: no rashes or lesions noted and turgor normal Data : 10/08/20 06:17 10/08/20 06:17 A&P Assessment and plan (1) BRENDA (acute kidney injury): may be related to dehydartion, poor po intake check nida; US, urine lytes, UA, CPK for rhabdomyolysis IVF NS @ 75cc/hr clinically appears dehydarted monitor I/O Status: Acute (2) Diabetes mellitus: hold insulin as hypoglycemia Status: Acute Qualifiers: Diabetes mellitus type: type 2 Diabetes mellitus [facility] insulin use: without director long term care use Diabetes mellitus complication status: without complication Qualified Code(s): E11.9 - Type 2 diabetes mellitus without complications (3) Ankle fracture, bimalleolar, closed: ortho consult Status: Acute Qualifiers: Encounter type: initial encounter Laterality: unspecified laterality Qualified Code(s): S82.843A - Displaced bimalleolar fracture of unspecified lower leg, initial encounter for closed fracture (4) Fall: unclear if mechanical vs syncopal event tele monitoring for arrhythmia unable ti check orthostatics from fracture ??hypoglycemia, FS 60 at time of admission to [facility] Status: Acute Attestations Medical Necessity Statement*: >2 midnight will be needed for evaluation and management of BRENDA, IV hydration, management of ankle fracture, likely SNF placement Coding Level of Care Code Acute Reference Investigator for [facility] Diagnoses BRENDA (acute kidney injury) N17.9 Diabetes mellitus E11.9 Diabetes mellitus type: type 2 Diabetes mellitus director long term care insulin use: without director long term care use Diabetes mellitus complication status: without complication Ankle fracture, bimalleolar, closed S82.843A Encounter type: initial encounter Laterality: unspecified laterality Fall W19.XXXA
--- NOTE | 2020-10-07 17:54 | ECG_ITS ---
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 Measurements Intervals [place] Rate: 88 P: 76 MD: 133 QRS: 56 QRSD: 126 T: 54 QT: 377 QTc: 457 Interpretive Statements SINUS RHYTHM POSSIBLE RIGHT VENTRICULAR CONDUCTION DELAY [RSR (QR) IN V1/V2] NONSPECIFIC ST ELEVATION [0.05+ mV ST ELEVATION] Compared to ECG 07/01/2020 18:05:54 ST (T wave) deviation now present Sinus tachycardia no longer present Incomplete right bundle-branch block no longer present Myocardial infarct finding no longer present Electronically Signed On 10-07-2020 21:13:49 CDT by Yara Tolentino M.D. [id number]
--- NOTE | 2020-10-07 17:54 | XRR_ITS ---
PROCEDURE INFORMATION: Exam: XR Chest Exam date and time: 10/07/2020 7:38 PM Age: 65 years old Clinical indication: Pre-operative exam; Respiratory screening exam; Additional info: Evalute for pulmonary edema, FX ankle TECHNIQUE: Imaging protocol: XR of the chest. Views: 1 view. COMPARISON: CR XR chest 1V portable [id number] 07/02/2020 5:59 AM FINDINGS: Lungs: No consolidation. Pleural spaces: Unremarkable. No pleural effusion. No pneumothorax. Heart/Mediastinum: No cardiomegaly. Bones/joints: No acute fracture. XR/XR chest 1V portable [id number] IMPRESSION: No acute findings.
[2020-10-07 17:56] LABS: Glucose Point of Care 101 mg/dL (70-110)
[2020-10-07] MEDS: sodium chloride 0.9% 1,000 ML 75 ML IV (18:13)
[2020-10-07] MEDS: docusate sodium 100 mg Capsule PO (18:13)
[2020-10-07] MEDS: enoxaparin 40 mg/0.4 mL Syringe SUBCUT (18:38)
[2020-10-07 18:40] LABS: Basophils % 0.2 %; Eosinophils # 0.2 10^3/uL (0.0-0.8); Eosinophils % 1.4 %; Hemoglobin 10.7 g/dL (11.5-15.3); Lymphocytes # 1.6 10^3/uL (0.8-4.8); Mean Corpuscular HGB Conc 31.5 g/dL (30.0-36.0); Mean Corpuscular Hemoglobin 34.4 pg (28.0-34.0); Mean Corpuscular Volume 109.3 fL (81-99); Mean Platelet Volume 10.5 fL (7.4-10.4); Monocytes # 0.8 10^3/uL (0.2-0.9); Monocytes % 6.8 %; Neutrophils # 8.66 10^3/uL (1.8-7.7); Neutrophils % 76.7 %; Nucleated Red Blood Cells % 0 %; Platelet Count 196 10^3/cmm (130-400); Red Blood Count 3.11 10^6/uL (4.1-5.3); Red Cell Distribution Width 14.5 % (12.1-15.1); White Blood Count 11.3 10^3/uL (4.0-10.0)
[2020-10-07 18:43] LABS: ABG PH Result 7.31 (7.35-7.45); Arterial Blood Gas Hematocrit 33.3 % (37-47); Base Excess ABG -0.5 mmol/L (-2.0-2.0); Blood Gas Allen Test Pos; Blood Gas Operator Identificat AMH; Blood Gas Sample Site Radial, left; Blood Gas Sample Type Arterial; HCO3 ABG 26.4 mmol/L (22-26); Oxygen Device NC; PO2 ABG 63.8 mmHg (80.0-100.0)
[2020-10-07 18:56] LABS: Alanine Aminotransferase 17 U/L (0-33); Albumin Level 3.3 g/dL (3.5-5.2); Alkaline Phosphatase 68 IU/L (35-105); Anion Gap 14.7 (5-19); Aspartate Amino Transferase 10 U/L (0-32); Blood Urea Nitrogen 60 mg/dL (8-23); Calcium 9.4 mg/dL (8.5-10.5); Carbon Dioxide 26 mmol/L (22-29); Chloride 103 mmol/L (98-107); Creatine Phosphokinase 70 U/L (26-192); Globulin 2.4 g/dL (1.3-4.6); Glomerular Filtration Rate 16.3 mL/min (90-130); Glucose 99 mg/dL (65-115); Osmolality Calculated 305 mOsm/kg (285-295); Potassium 4.7 mmol/L (3.5-5.1); Sodium 139 mmol/L (136-145); Total Bilirubin 0.3 mg/dL (0.15-1.2); Total Protein 5.7 g/dL (6.6-8.7)
[2020-10-07] MEDS: HYDROcodone-acetaminophen 10-325 mg Tablet 1 TAB PO (19:09)
[2020-10-07] MEDS: ipratropium-albuterol 3 mL Neb INHALATION (21:31)
[2020-10-07] MEDS: TRAMadol 50 mg Tablet 100 MG PO (21:44)
[2020-10-07] MEDS: trazodone 100 mg Tablet PO (21:44)
[2020-10-07] MEDS: cyclobenzaprine 10 mg Tablet PO (21:45)
--- NOTE | 2020-10-07 22:50 | PC.NURSE ---
pt acting strange tonight - right after medication admin nurse noticed pt was making strange twitching/muscle luis manuel movements that were involuntary, when asking patient neuro check questions initially had to be reminded of date but otherwise knew name and year. Neuro assessment preformed by Humaira BERRIOS - modeling manager equal, no arm drift, pupils reactive. Vitals taken, WNL - and blood glucose obtained value of 93. Dr notified of concern and order of prolactin and urine drug screen ordered. Will monitor closely for any change.
[2020-10-07 22:59] LABS: Glucose Point of Care 93 mg/dL (70-110)
[2020-10-07 23:30] LABS: Bilirubin Urine Neg (Negative); Blood Urine 3+ (Negative); Glucose Urine UA Norm (Normal); Ketones Urine Negative (Negative); Nitrate Urine Negative (Negative); Protein Urine Neg (Negative); Urine Appearance Clear (CLEAR); Urine Color Yellow (Yellow); pH Urine 5 (5-7)
[2020-10-07 23:31] LABS: Add Urine Microscopic? YES; Leukocyte Esterase Urine 1+ (Negative); Urobilinogen Urine Norm (Negative)
[2020-10-07 23:32] LABS: Bacteria Urine 1+ /hpf; RBC Urine 15-25 /hpf (0-2); Squamous Epithelial Cell Urine 15-25 /hpf (0-5)
[2020-10-07 23:33] LABS: Add Urine Culture? No
[2020-10-08] VITALS (20 sets, daily range): BP systolic 128–154; BP diastolic 61–84; PULSE 86–109; RESP 17–20; TEMP 36.5–37.3; O2SAT 91–97
[2020-10-08] MEDS: ipratropium-albuterol 3 mL Neb INHALATION ×5 (01:00→20:25)
[2020-10-08 01:08] LABS: Prolactin 11.34 ng/mL (4.8-23.3)
[2020-10-08 01:24] LABS: Potassium, Radom Urine 40 mmol/L; Urine Random Chloride 36 mmol/L; Urine Random Sodium 33 mmol/L
[2020-10-08] MEDS: acetaminophen 325 mg Tablet 650 MG PO ×2 (02:29→11:59)
[2020-10-08 03:10] LABS: Amphetamines Screen Urine Negative (Negative); Barbiturates Screen Urine Negative (Negative); Benzodiazepines Screen Urine Negative (Negative); Cocaine Screen Urine Negative (Negative); Opiate Screen Urine Positive (Negative); PCP Screen Urine Negative (Negative); THC Screen Urine Negative (Negative)
[2020-10-08] MEDS: HYDROcodone-acetaminophen 10-325 mg Tablet 1 TAB PO ×3 (05:22→22:12)
[2020-10-08 06:26] LABS: Basophils % 0.1 %; Eosinophils # 0.2 10^3/uL (0.0-0.8); Eosinophils % 1.6 %; Hematocrit 32.9 % (37.0-47.0); Hemoglobin 10.4 g/dL (11.5-15.3); Lymphocytes # 1.4 10^3/uL (0.8-4.8); Lymphocytes % 14.5 %; Mean Corpuscular HGB Conc 31.6 g/dL (30.0-36.0); Mean Corpuscular Hemoglobin 34.2 pg (28.0-34.0); Mean Corpuscular Volume 108.2 fL (81-99); Mean Platelet Volume 10.3 fL (7.4-10.4); Monocytes # 0.9 10^3/uL (0.2-0.9); Monocytes % 9.8 %; Neutrophils # 6.79 10^3/uL (1.8-7.7); Neutrophils % 73.1 %; Nucleated Red Blood Cells % 0 %; Platelet Count 194 10^3/cmm (130-400); Red Blood Count 3.04 10^6/uL (4.1-5.3); Red Cell Distribution Width 14.4 % (12.1-15.1); White Blood Count 9.3 10^3/uL (4.0-10.0)
[2020-10-08] MEDS: HYDROmorphone 1 mg/mL INJ 1 mL IVP (06:35)
[2020-10-08 06:55] LABS: Alanine Aminotransferase 13 U/L (0-33); Albumin Level 3.4 g/dL (3.5-5.2); Alkaline Phosphatase 68 IU/L (35-105); Anion Gap 14.8 (5-19); Aspartate Amino Transferase 6 U/L (0-32); Blood Urea Nitrogen 53 mg/dL (8-23); Calcium 8.5 mg/dL (8.5-10.5); Carbon Dioxide 24 mmol/L (22-29); Chloride 105 mmol/L (98-107); Globulin 2.5 g/dL (1.3-4.6); Glomerular Filtration Rate 19.4 mL/min (90-130); Glucose 100 mg/dL (65-115); Osmolality Calculated 302 mOsm/kg (285-295); Potassium 4.8 mmol/L (3.5-5.1); Sodium 139 mmol/L (136-145); Thyroid Stimulating Hormone 1.36 uIU/mL (0.27-4.20); Total Bilirubin 0.3 mg/dL (0.15-1.2); Total Protein 5.9 g/dL (6.6-8.7)
[2020-10-08 06:57] LABS: Estmated Average Glucose 157; Hemoglobin A1C 7.1 % (4.0-6.0)
[2020-10-08] MEDS: sodium chloride 0.9% 1,000 ML 75 ML IV (07:55)
[2020-10-08] MEDS: levothyroxine 100 mcg Tablet PO (08:24)
[2020-10-08] MEDS: docusate sodium 100 mg Capsule PO ×2 (08:24→17:18)
[2020-10-08] MEDS: amlodipine 5 mg Tablet PO (08:24)
[2020-10-08] MEDS: pantoprazole DR 40 mg Tablet PO (08:24)
--- NOTE | 2020-10-08 08:28 | PM.CONSULT ---
Providers/Reason For Consult Consulting Physican/Specialty*: hospitalist Reason for Consult*: ankle fracture Attending Physician: Anne Pedroza MD Primary Care Provider: ANDREA Sargent History of Present Illness History of Present Illness Annmarie El is a 65 year old female ecently admitted in July 2020 with COVID-19 pneumonia, discharged home where she continued to get home health. She presented to [facility] today after having sustained a fall at home. She does not remember the exact circumstances but feels she may have passed out, she remembers her legs giving way under her but not much else. Denies any dizziness chest pain dyspnea or palpitations. Oxygen requirements are at a baseline of 2 L/min since her COVID-19 diagnosis. She was taken to [facility] where she was diagnosed with a trimalleolar fracture of the left ankle which was reduced, she has immobilizer in place at this present time. On labs performed at [facility] she was noted to have BRENDA with creatinine of 3.5, last creatinine from August 31, 2020 at 1.0. She states she has had adequate p.o. intake over the past few days, however has been feeling a sense of generalized weakness over the past 1 week. Denies any sedation of any new medication, denies any change in her recent Lasix or lisinopril dosing. Hydrochlorothiazide was recently added on August 31, 2020 after cardiology follow-up, however patient is unable to tell me at this present time if she was taking this medication. Has not noticed any reduced urine output. Currently has a Trent catheter in place. She had ankle reduced in [facility] appears to be in decent alignment. patient is in and out of consciousness when talking to her. Review of Systems Narrative: diffucult to get information from patient ENMT: Denies: enlarged tonsils All/Imm: Denies: acute wheezing Meds/Allergies Home Medications and Allergies Home Medications Medication Instructions Recorded Confirmed Last Taken Type levothyroxine 100 mcg capsule 100 mcg PO DAILY 06/27/19 09/16/20 Unknown History venlafaxine 100 mg tablet 100 mg PO BID 06/27/19 09/16/20 Unknown History venlafaxine 25 mg tablet 25 mg PO BID 06/27/19 09/16/20 Unknown History glipizide 5 mg tablet, extended 5 mg PO ONCE tab 07/08/19 09/16/20 Unknown History release 24 hr trazodone 150 mg tablet 150 mg PO BEDTIME tab 07/08/19 09/16/20 Unknown History furosemide 20 mg tablet 20 mg PO DAILY #30 tab 06/17/20 09/16/20 Unknown Rx potassium chloride 20 mEq 20 meq PO DAILY #30 tab 06/17/20 09/16/20 Unknown Rx tablet,extended release magnesium chloride 64 mg 64 mg PO DAILY #90 tab 06/18/20 09/16/20 Unknown Rx (magnesium chloride) tablet,delayed release lisinopril 20 mg PO DAILY 07/01/20 09/16/20 Unknown History albuterol sulfate [Ventolin HFA] 2 puff INHALATION Q4H.RESPIRATORY 07/05/20 09/16/20 Unknown Rx PRN #18 g amlodipine 5 mg PO DAILY #90 tab 07/05/20 09/16/20 Unknown Rx insulin glargine [Lantus Solostar 8 unit SUBCUT QPM #15 ml 07/05/20 09/16/20 Unknown Rx U-100 Insulin] budesonide 3 mg 3 mg PO TID ea 07/22/20 09/16/20 Unknown History capsule,delayed,extended release cyclobenzaprine 10 mg tablet 10 mg PO TID PRN 30 Days #90 tab 07/22/20 09/16/20 Unknown Rx gabapentin 300 mg capsule 300 mg PO TID 30 Days #90 cap 07/22/20 09/16/20 Unknown Rx hydrocodone 10 mg-acetaminophen 1 tab PO TID 30 Days #90 tab 07/22/20 09/16/20 Unknown Rx 325 mg tablet hydrocodone 10 mg-acetaminophen 1 tab PO TID PRN 30 Days #90 tab 07/22/20 09/16/20 Unknown Rx 325 mg tablet simvastatin 20 mg tablet 20 mg PO BID tab 07/22/20 09/16/20 Unknown History hydrochlorothiazide 12.5 mg tablet 37.5 mg .ROUTE .COMPLEX tab 08/31/20 09/16/20 Unknown History tramadol 50 mg tablet 100 mg PO BID PRN 30 Days #120 tab 09/16/20 09/16/20 Unknown Rx Allergies Allergy/AdvReac Type Severity Reaction Status Date / Time Sulfa (Sulfonamide Allergy hives Verified 09/16/20 14:46 Antibiotics) Current Medications Current Medications Generic Name Dose Route Start Last Admin Trade Name Berny PRN Reason Stop Dose Admin Acetaminophen 650 mg 10/07/20 17:49 10/08/20 02:29 Acetaminophen 325 Mg Tablet PO 650 mg Q6H PRN Administration Mild/Mod Pain Or Temp >/= 101 Hydrocodone Bitart/Acetaminophen 1 tab 10/07/20 17:58 10/08/20 05:22 Hydrocodone-Acetaminophen 10-325 Mg Tablet PO 1 tab TID PRN Administration moderate pain Albuterol/Ipratropium 3 ml 10/07/20 20:00 10/08/20 07:33 Ipratropium-Albuterol 3 Ml Neb INHALATION 3 ml Q4H.RESPIRATORY FIOR Administration Amlodipine Besylate 5 mg 10/08/20 09:00 10/08/20 08:24 Amlodipine 5 Mg Tablet PO 5 mg DAILY FIOR Administration Cyclobenzaprine HCl 10 mg 10/07/20 17:58 10/07/20 21:45 Cyclobenzaprine 10 Mg Tablet PO 10 mg TID PRN Administration muscle spasm Docusate Sodium 100 mg 10/07/20 18:00 10/08/20 08:24 Docusate Sodium 100 Mg Capsule PO 100 mg BID FIOR Administration Enoxaparin Sodium 40 mg 10/07/20 18:30 10/07/20 18:38 Enoxaparin 40 Mg/0.4 Ml Syringe SUBCUT 40 mg Q24H FIOR Administration Sodium Chloride 1,000 mls @ 75 mls/hr 10/07/20 18:00 10/08/20 07:55 Sodium Chloride 0.9% IV 75 mls/hr .[id number] FIOR Administration Levothyroxine Sodium 100 mcg 10/08/20 09:00 10/08/20 08:24 Levothyroxine 100 Mcg Tablet PO 100 mcg DAILY FIOR Administration Pantoprazole Sodium 40 mg 10/08/20 09:00 10/08/20 08:[address] 40 Mg Tablet PO 40 mg DAILY FIOR Administration PFSH Acute PFSH: Medical History (Updated 10/08/20 @ 08:30 by Mac Calloway DO) Chronic low back pain Diabetes mellitus Encounter for long-term use of opiate analgesic Hyperlipidemia 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 Joint instability Lumbosacral spondylosis without myelopathy Paresthesia of bilateral legs Sacroiliac pain Spinal stenosis of lumbar region Surgical History S/P appendectomy Family History Grandmother Diabetes Cancer Grandfather Diabetes Cancer Social History Smoking and tobacco status: current every day smoker cigarettes Packs smoked per day: 1 [ Other cigarette details: DOWN FROM 1 PPD ] Alcohol intake: never Marital status: History of recent travel: No Dietary Habits: Current diet type/program: regular Caffeine: Yes Caffeine intake frequency: carbonated beverages, coffee and tea Home Safety: Firearms in home: No Vitals/I&O/Wt Last Vital Signs Temp 97.7 F 10/08/20 08:00 Pulse 91 10/08/20 08:00 Resp 18 10/08/20 08:00 BP 132/67 10/08/20 08:00 Pulse Ox 95 10/08/20 08:00 10/07/20 10/08/20 10/08/20 22:59 06:59 14:59 Intake Total 220 / 220 1000 / 1000 Output Total 450 / 450 300 / 750 Balance -450 / -450 -80 / -530 1000 / 1000 Weight last 48 hrs Weight 199 lb 5 oz Physical Exam Narrative: EXAM NARRATIVE: Patient is currently in bed. In and out of consciousness hard to get a good physical exam from her. She is in a splint appears to be in good alignment x-rays reviewed appear to be in adequate alignment at this point. A&P Assessment and plan (1) Ankle fracture, bimalleolar, closed: Patient has an ankle fracture. She has a history of diabetes and on dialysis from renal and renal failure. The current hardware that we have to fix her ankle here are just plates and screws. With her history I would like to do a hindfoot fusion nail. To give her stability and try to avoid having to do a revision surgery on her with plates and screws. Unfortunately we do not have this hardware here at this time patient can be discharged and I can see her in outpatient basis and get this scheduled as an outpatient basis. If she gets discharged over the weekend I can see her in the clinic on Sunday. And schedule her for next Sunday. If she stays in the hospital I can just fix her next Sunday. Status: Acute Consult Attestations Medical Necessity Statement: medical issues Coding Level of Care Code Acute Staff Analyst for [facility] Fwd Diagnoses Ankle fracture, bimalleolar, closed S82.847Q
--- NOTE | 2020-10-08 09:34 | PC.PHAR ---
pt unable to STAY AWAKE AND verify medications-pts daughter seble states the pt takes care of her own medications-METFORMIN AND NORCO 5-325MG pulled up on ext med history but doesnt shows prescriber,qty, or pharmacy filled at-shows filled on 10/07/20-EXT MED HISTORY SHOWS TERRA WAS LAST FILLED ON 07/05/20 30D/S-PT STATES SHE TAKES LANTUS AND USES 8 UNITS QPM-EXT MED HISTORY SHOWS LAST FILLED ON 08/26/20 9 UNITS QPM-MEDICATIONS ENTERED ARE MEDS THAT SHOW HAVE BEEN FILLED RECENTLY ON EXT MED HISTORY AND SOME MEDICATIONS WERE ON PREVIOUS ENTERED MED LIST
[2020-10-08 11:23] LABS: Glucose Point of Care 96 mg/dL (70-110)
[2020-10-08] MEDS: predniSONE 10 mg Tablet 30 MG PO (12:00)
--- NOTE | 2020-10-08 13:37 | PC.CHAP ---
Pastoral Care Encounter/Spiritual Assessment Type of Contact [] Declined larry car operator visit [xx] Patient/Family/Request visit [] Outpatient visit [] Follow-up visit [] Physician referral [] Code/Alert [xx] Routine visit [] Staff referral [] Actively dying [] Patient sleeping [] Family support [] [] Out of room [] Palliative care [] [] Receiving care in room [] Pre-surgical visit [] Trauma [] Long length of stay [] ICU visit [] Other: Relational/Emotional Strength [xx] Patient feels connected with others/family/visitors/staff [] Distress [] Loneliness/isolation [] Abandonment Spirituality of Patient [xx] Person of Jinny [] Attends Restorationist of their Jinny [xx] Believes in Prayer [] Reads Bible or Hinduism materials [] There are Spiritual issues to be addressed Social Research Assistant Interventions [xx] Prayer [xx] Active listening [xx] Non-anxious presence [] Spiritual/emotional support [] Crisis/trauma care [] Spiritual counseling [] Bereavement support [] Provided bereavement packet [] Provided Bible/devotional materials [] Provided toy/stuffed animal, coloring book to patient or family member [] Provided Communion [] Anointing/[place] [] Salvation [xx] Completed spiritual assessment [] Other: Impact on Illness or Injury [] Angry [] Fearful [] Anxious [] Often cries [] Exhaustion [] Unable to work [] Unable to attend sikhism [xx] Unable to walk/stand [] Unable to read [] Unable to drive [] Unable to eat/drink [] Unable to sleep [] Unable to be with family [] Patient intubated [] Other: Summary Social Research Assistant visited patient who is in considerable pain from foot surgery. Patient asked larry car operator to get nurse to request something for pain relief. Social Research Assistant prayed then complied. Nurse later asked larry car operator to stay with patient until she fell asleep. Patient was asking for larry car operator to return and pray for her until pain meds started working and she fell asleep. Patient also in mental distress. Social Research Assistant stayed additional 30 minutes until patient became drowsy and medical staff arrived to check on her. Time spent with patient 37 minutes
[2020-10-08] MEDS: cyclobenzaprine 10 mg Tablet PO ×2 (17:18→22:18)
[2020-10-08] MEDS: enoxaparin 30 mg/0.3 mL Syringe SUBCUT (17:33)
[2020-10-08 17:36] LABS: Glucose Point of Care 238 mg/dL (70-110)
--- NOTE | 2020-10-08 17:41 | PC.RESP ---
Smoking Cessation information sent to patient.
--- NOTE | 2020-10-08 17:57 | PM.PN ---
Subjective Subjective: Interval history: cr improving to 2.5 today, denies new complaints, requesting more pain medication, explained that we are trying to avoid excess opiates as patient appears somnolent intermittently, ABG yesterday with respiratory acidosis. 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 Data : 10/08/20 06:17 10/08/20 06:17 A&P Assessment and plan (1) BRENDA (acute kidney injury): may be related to dehydartion, poor po intake , improving today IVF NS @ 75cc/hr clinically appears dehydarted monitor I/O renal US pending Status: Acute (2) Diabetes mellitus: resume ISS Status: Acute Qualifiers: Diabetes mellitus type: type 2 Diabetes mellitus chcf insulin use: without long lines operator use Diabetes mellitus complication status: without complication Qualified Code(s): E11.9 - Type 2 diabetes mellitus without complications (3) Ankle fracture, bimalleolar, closed: ortho consult appreciated, no acute surgical intervenetion at this time Status: Acute Qualifiers: Encounter type: initial encounter Laterality: unspecified laterality Qualified Code(s): S82.843A - Displaced bimalleolar fracture of unspecified lower leg, initial encounter for closed fracture (4) Fall: unclear if mechanical vs syncopal event vs hypoglycemia Status: Acute Additional A&P Information Sleep apnea: CPAP at nigth time On prednisone 30mg , converted from home dose of budesonide 9mg daily , unclear inidcation at this time Attestations Medical Necessity Statement*: ongoing need for iv hydration, monitor renal status Coding Level of Care Code 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
[2020-10-08 20:26] LABS: Glucose Point of Care 316 mg/dL (70-110)
[2020-10-08] MEDS: quetiapine 25 mg Tablet PO (22:13)
[2020-10-09] VITALS (16 sets, daily range): BP systolic 120–185; BP diastolic 67–77; PULSE 93–107; RESP 16–20; TEMP 36.3–37; O2SAT 93–98
[2020-10-09] MEDS: ipratropium-albuterol 3 mL Neb INHALATION ×5 (00:25→19:57)
[2020-10-09] MEDS: LORazepam 2 mg/mL INJ 1 mL 1 MG IVP (00:58)
[2020-10-09] MEDS: sodium chloride 0.9% 1,000 ML 75 ML IV (01:25)
[2020-10-09] MEDS: HYDROcodone-acetaminophen 10-325 mg Tablet 1 TAB PO ×2 (05:51→20:28)
[2020-10-09 06:58] LABS: Glucose Point of Care 133 mg/dL (70-110)
[2020-10-09 07:46] LABS: Alanine Aminotransferase 12 U/L (0-33); Alkaline Phosphatase 63 IU/L (35-105); Anion Gap 13.3 (5-19); Aspartate Amino Transferase 8 U/L (0-32); Blood Urea Nitrogen 43 mg/dL (8-23); Calcium 8.8 mg/dL (8.5-10.5); Carbon Dioxide 25 mmol/L (22-29); Chloride 106 mmol/L (98-107); Globulin 2.6 g/dL (1.3-4.6); Glomerular Filtration Rate 28.3 mL/min (90-130); Glucose 111 mg/dL (65-115); NT Pro B Type Natriuretic Pept 2168 pg/mL (0-125); Osmolality Calculated 302 mOsm/kg (285-295); Potassium 4.3 mmol/L (3.5-5.1); Sodium 140 mmol/L (136-145); Total Bilirubin 0.3 mg/dL (0.15-1.2); Total Protein 5.6 g/dL (6.6-8.7)
[2020-10-09] MEDS: pantoprazole DR 40 mg Tablet PO (10:22)
[2020-10-09] MEDS: amlodipine 5 mg Tablet PO (10:22)
[2020-10-09] MEDS: predniSONE 10 mg Tablet 30 MG PO (10:22)
[2020-10-09] MEDS: docusate sodium 100 mg Capsule PO ×2 (10:22→18:06)
[2020-10-09] MEDS: levothyroxine 100 mcg Tablet PO (10:23)
[2020-10-09] MEDS: acetaminophen 325 mg Tablet 650 MG PO (10:49)
[2020-10-09] MEDS: cyclobenzaprine 10 mg Tablet PO (10:50)
[2020-10-09 11:36] LABS: Glucose Point of Care 136 mg/dL (70-110)
--- NOTE | 2020-10-09 16:54 | PM.PN ---
Subjective Subjective: Interval history: Kidney function continues to improve to 1.8 today. Has some urinary leaking around her catheter. Afebrile, hemodynamically stable otherwise. 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 All of this likely contributed to dehydration and BRENDA. Kidney function improved with IV hydration with normal saline. Urine output at 2500 cc over last 24 hours. Renal ultrasound without any signs of obstruction along the urinary tract. Unremarkable kidneys and bladder. Status: Acute (2) Diabetes mellitus: resume ISS however patient is not currently requiring any insulin. She was hypoglycemic at home, and wonder if this precipitated her fall. She had been recently started on insulin 8 units of Lantus. HbA1c is much improved from 9 on last check to 7 on this current admission. Will discontinue insulin and glipizide upon discharge and continue Metformin only. Status: Acute Qualifiers: Diabetes mellitus type: type 2 Diabetes mellitus alf insulin use: without alf use Diabetes mellitus complication status: without complication Qualified Code(s): E11.9 - Type 2 diabetes mellitus without complications (3) Ankle fracture, bimalleolar, closed: ortho consult appreciated, no acute surgical intervenetion at this time PT assessment requested. Given patient's current fracture, likely impaired mobility over the next few weeks, inability to care for herself at home, and deconditioning after last admission for Covid, SNF would be the most appropriate discharge plan for her. This is currently being worked on with case management. Status: Acute Qualifiers: Encounter type: initial encounter Laterality: unspecified laterality Qualified Code(s): S82.843A - Displaced bimalleolar fracture of unspecified lower leg, initial encounter for closed fracture (4) Fall: unclear if mechanical vs syncopal event vs hypoglycemia Status: Acute Additional A&P Information Sleep apnea: CPAP at nigth time On prednisone 30mg , converted from home dose of budesonide 9mg daily , unclear why she has been on this medication since 2019. Request records from PCP. Attestations Medical Necessity Statement*: BRENDA, improving, discontinue IV fluids today and closely monitor renal function, SNF placement, PT assessment. 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 Diagnoses BRENDA (acute kidney injury) N17.9 Diabetes mellitus E11.9 Diabetes mellitus type: type 2 Diabetes mellitus alf insulin use: without alf use Diabetes mellitus complication status: without complication Ankle fracture, bimalleolar, closed S82.843A Encounter type: initial encounter Laterality: unspecified laterality Fall W19.XXXA
[2020-10-09 17:46] LABS: Glucose Point of Care 265 mg/dL (70-110)
--- NOTE | 2020-10-09 17:54 | USR_ITS ---
PROCEDURE INFORMATION: Exam: US Retroperitoneal; Complete; Kidneys and Bladder Exam date and time: 10/09/2020 8:27 AM Age: 65 years old Clinical indication: Abnormal findings; Abnormal lab test; Abnormal kidney function lab tests; Additional info: Manuel TECHNIQUE: Imaging protocol: Real-time ultrasound of the retroperitoneum with image documentation. Complete exam focused on the kidneys and bladder. COMPARISON: CT abdomen pelvis w con* [id number] 07/01/2020 8:13 PM FINDINGS: Right kidney: Normal size shape and echogenicity. No masses. No stones. No hydronephrosis. Left kidney: Normal size shape and echogenicity. No masses. No stones. No hydronephrosis. Aorta: Only the proximal abdominal aorta is seen due to bowel gas and is not dilated. Urinary bladder: The urinary bladder is collapsed around a Trent catheter. US/US renal BI* [id number] IMPRESSION: Unremarkable kidneys and bladder.
[2020-10-09] MEDS: enoxaparin 40 mg/0.4 mL Syringe SUBCUT (18:06)
[2020-10-09] MEDS: ALPRAZolam 0.25 mg Tablet PO (20:28)
[2020-10-09] MEDS: gabapentin 300 mg Capsule PO (20:29)
[2020-10-09 20:30] LABS: Glucose Point of Care 184 mg/dL (70-110)
[2020-10-10] VITALS (15 sets, daily range): BP systolic 136–153; BP diastolic 64–78; PULSE 77–103; RESP 16–18; TEMP 36.3–37.9; O2SAT 91–100
--- NOTE | 2020-10-10 02:34 | PC.NURSE ---
Patient had requested to be transferred to bedside commode. This nurse assisted the patient to commode while patient used walker. Upon wanting to get back in bed patient started to transfer self without assistance, this nurse asked patient to hold on until this nurse could get from in front of patient to beside her. Patient was adamant to get up without help and before this nurse could get to patient side, patient was pushing up using the handle on the commode and her walker. As this nurse got to patients side she started to lose her balance. This nurse was able to catch patient and lower her to the floor. Patient did not hit head or have any injuries. Patient was assisted back to bed and bed alarm was set.
[2020-10-10] MEDS: ipratropium-albuterol 3 mL Neb INHALATION ×5 (03:14→20:14)
[2020-10-10] MEDS: HYDROcodone-acetaminophen 5-325 mg Tablet 1 TAB PO ×2 (04:30→15:22)
[2020-10-10 06:46] LABS: Glucose Point of Care 97 mg/dL (70-110)
[2020-10-10 06:55] LABS: Alanine Aminotransferase 16 U/L (0-33); Alkaline Phosphatase 57 IU/L (35-105); Anion Gap 12.2 (5-19); Aspartate Amino Transferase 13 U/L (0-32); Blood Urea Nitrogen 30 mg/dL (8-23); Carbon Dioxide 27 mmol/L (22-29); Chloride 106 mmol/L (98-107); Globulin 2.3 g/dL (1.3-4.6); Glomerular Filtration Rate 37.9 mL/min (90-130); Glucose 84 mg/dL (65-115); Osmolality Calculated 297 mOsm/kg (285-295); Potassium 4.2 mmol/L (3.5-5.1); Sodium 141 mmol/L (136-145); Total Bilirubin 0.3 mg/dL (0.15-1.2); Total Protein 5.3 g/dL (6.6-8.7)
[2020-10-10] MEDS: pantoprazole DR 40 mg Tablet PO (08:03)
[2020-10-10] MEDS: atorvastatin 40 mg Tablet 20 MG PO (08:03)
[2020-10-10] MEDS: gabapentin 300 mg Capsule PO ×3 (08:03→21:31)
[2020-10-10] MEDS: docusate sodium 100 mg Capsule PO ×2 (08:04→16:49)
[2020-10-10] MEDS: HYDROcodone-acetaminophen 10-325 mg Tablet 1 TAB PO (08:04)
[2020-10-10] MEDS: predniSONE 10 mg Tablet 30 MG PO (08:04)
[2020-10-10] MEDS: levothyroxine 100 mcg Tablet PO (08:04)
[2020-10-10] MEDS: amlodipine 10 mg Tablet PO (08:05)
--- NOTE | 2020-10-10 08:57 | PC.NURSE ---
EDUCATION EDUCATION GIVEN TO PT REGARDING REMAINING UP IN CHAIR - PT REPEATEDLY PUSHING CALL LIGHT WANTING BACK IN BED AFTER PT GOT TO CHAIR - EDUCATION GIVEN ON REMAINING UP AT LEAST 1 HOUR OR LONG POSSIBLE WHILE TAKING DEEP BREATHS TO EXPAND LUNGS - EACH TIME PT VERBALIZES UNDERSTANDING
--- NOTE | 2020-10-10 10:34 | PC.CHAP ---
Pastoral Care Encounter/Spiritual Assessment Type of Contact [] Declined shipping order clerk visit [] Patient/Family/Request visit [] Outpatient visit [] Follow-up visit [] Physician referral [] Code/Alert [x] Routine visit [] Staff referral [] Actively dying [] Patient sleeping [] Family support [] [] Out of room [] Palliative care [] [] Receiving care in room [] Pre-surgical visit [] Trauma [] Long length of stay [] ICU visit [] Other: Relational/Emotional Strength [x] Patient feels connected with others/family/visitors/staff [] Distress [] Loneliness/isolation [] Abandonment Spirituality of Patient [x] Person of Jinny [] Attends Hoahaoism of their Jinny [x] Believes in Prayer [] Reads Bible or Synagogue materials [] There are Spiritual issues to be addressed Cloth Shrinking Machine Operator Helper Interventions [x] Prayer [x] Active listening [x] Non-anxious presence [x] Spiritual/emotional support [] Crisis/trauma care [] Spiritual counseling [] Bereavement support [] Provided bereavement packet [] Provided Bible/devotional materials [] Provided toy/stuffed animal, coloring book to patient or family member [] Provided Communion [] Anointing/Snowflake [] Salvation [x] Completed spiritual assessment [] Other: Impact on Illness or Injury [] Angry [] Fearful [] Anxious [] Often cries [] Exhaustion [] Unable to work [] Unable to attend mandaeism [] Unable to walk/stand [] Unable to read [] Unable to drive [] Unable to eat/drink [] Unable to sleep [] Unable to be with family [] Patient intubated [] Other: Summary Pt remains uncertain when surgery is scheduled. Expects to go to snf for rehab upon discharge. Time spent with patient 5m
[2020-10-10 11:04] LABS: Glucose Point of Care 100 mg/dL (70-110)
[2020-10-10] MEDS: cyclobenzaprine 10 mg Tablet 5 MG PO (11:41)
--- NOTE | 2020-10-10 11:47 | PC.SOCIAL ---
IMM update Pg. 2 of IMM Updated. Copy provided to patient.
--- NOTE | 2020-10-10 15:52 | P.PN_ITS ---
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
[2020-10-10 16:46] LABS: Glucose Point of Care 274 mg/dL (70-110)
--- NOTE | 2020-10-10 16:48 | PM.PN ---
Subjective Subjective: Interval history: Patient feels much improved today, states breathing is better, creatinine continues to improve to 1.4, urine output of about 2 L over the last 24 hours. Sitting in side of bed, more active than on previous exams. Saturating 93% on room air. 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 All of this likely contributed to dehydration and BRENDA. Kidney function improved with IV hydration with normal saline. Urine output at 2500 cc over last 24 hours. Renal ultrasound without any signs of obstruction along the urinary tract. Unremarkable kidneys and bladder. Creatinine is now improved to 1.4 Status: Acute (2) Diabetes mellitus: resume ISS however patient is not currently requiring any insulin. She was hypoglycemic at home, and wonder if this precipitated her fall. She had been recently started on insulin 8 units of Lantus. HbA1c is much improved from 9 on last check to 7 on this current admission. Will discontinue insulin and glipizide upon discharge and continue Metformin only. 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 Medically optimized for surgery at this present time given that dyspnea is much improved, no longer hypoglycemic, kidney function improved at 1.4. Given patient's current fracture, likely impaired mobility over the next few weeks, inability to care for herself at home, and deconditioning after last admission for Covid, SNF would be the most appropriate discharge plan for her. This is currently being worked on with case management. Status: Acute Qualifiers: Encounter type: initial encounter Laterality: unspecified laterality Qualified Code(s): S82.843A - Displaced bimalleolar fracture of unspecified lower leg, initial encounter for closed fracture (4) Fall: unclear if mechanical vs syncopal event vs hypoglycemia Status: Acute Additional A&P Information Sleep apnea: CPAP at nigth time On prednisone 30mg , converted from home dose of budesonide 9mg daily , states that she has this for chronic diarrhea , unclear if she has a diagnosis of Crohn's or microscopic colitis. Continuing steroids for now as she has been on this since 2019 and acute tapering may cause acute adrenal insufficiency. DVT prophylaxis: Lovenox Full code Attestations Medical Necessity Statement*: Improving kidney function, continue to monitor renal function, plan for surgical intervention for ankle fracture on Sunday morning. 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
[2020-10-10] MEDS: enoxaparin 40 mg/0.4 mL Syringe SUBCUT (16:49)
[2020-10-10 21:49] LABS: Glucose Point of Care 229 mg/dL (70-110)
[2020-10-11] VITALS (16 sets, daily range): BP systolic 116–160; BP diastolic 55–76; PULSE 60–99; RESP 18; TEMP 36.5–37.2; O2SAT 18–100
[2020-10-11] MEDS: HYDROcodone-acetaminophen 10-325 mg Tablet 1 TAB PO ×2 (04:14→15:19)
[2020-10-11 07:02] LABS: Glucose Point of Care 105 mg/dL (70-110)
--- NOTE | 2020-10-11 07:06 | PM.PN ---
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
[2020-10-11] MEDS: atorvastatin 40 mg Tablet 20 MG PO (08:06)
[2020-10-11] MEDS: amlodipine 10 mg Tablet PO (08:06)
[2020-10-11] MEDS: docusate sodium 100 mg Capsule PO ×2 (08:06→17:16)
[2020-10-11] MEDS: pantoprazole DR 40 mg Tablet PO (08:06)
[2020-10-11] MEDS: levothyroxine 100 mcg Tablet PO (08:06)
[2020-10-11] MEDS: gabapentin 300 mg Capsule PO ×3 (08:06→21:11)
[2020-10-11] MEDS: predniSONE 10 mg Tablet 30 MG PO (08:07)
[2020-10-11] MEDS: ipratropium-albuterol 3 mL Neb INHALATION ×6 (08:07→23:16)
[2020-10-11 09:36] LABS: ABG PCO2 46.5 mmHg (35-45); ABG PH Result 7.33 (7.35-7.45); Arterial Blood Gas Hematocrit 32.6 % (37-47); Base Excess ABG -1.4 mmol/L (-2.0-2.0); Blood Gas Operator Identificat HARKR; Blood Gas Sample Site Brachial, left; Blood Gas Sample Type Arterial; HCO3 ABG 24.7 mmol/L (22-26); Oxygen Device NC; PO2 ABG 81.4 mmHg (80.0-100.0)
[2020-10-11] MEDS: HYDROcodone-acetaminophen 5-325 mg Tablet 1 TAB PO ×2 (10:13→19:17)
[2020-10-11 10:38] LABS: Glucose Point of Care 237 mg/dL (70-110)
--- NOTE | 2020-10-11 11:20 | PM.PN ---
Subjective Subjective: Interval history: No acute event overnight. Patient was seen and examined this morning. laying comfortably in bed. No am Labs . Medications: Reviewed: Yes Vitals/I&O/Wt Last Vital Signs Temp 97.7 F 10/11/20 07:37 Pulse 69 10/11/20 08:13 Resp 18 10/11/20 08:08 BP 147/64 10/11/20 07:37 Pulse Ox 98 10/11/20 08:15 10/10/20 10/11/20 10/11/20 22:59 06:59 14:59 Intake Total 480 / 1200 480 / 480 Output Total 350 / 350 200 / 550 Balance 130 / 850 -200 / 650 480 / 480 Physical Exam Const: COMMON NORMALS: patient oriented x3 HENMT: COMMON NORMALS: normocephalic and atraumatic HEAD & SCALP: normocephalic and atraumatic Chest: CHEST: Yes Symmetrical chest wall rise Resp: COMMON NORMALS: clear to auscultation bilaterally AUSCULTATION: clear to auscultation bilaterally Cardio: COMMON NORMALS: regular rate, regular rhythm, S1 normal heart sound present, S2 normal heart sound present, No gallops present (Cardio), No murmurs present (Cardio), No rub (Cardio) and Peripheral pulses 2+ throughout RATE: regular rate RHYTHM: regular rhythm HEART SOUNDS: S1 normal heart sound present and S2 normal heart sound present PERIPHERAL PULSES: Peripheral pulses 2+ throughout GI: COMMON NORMALS: Normal to inspection, nondistended, normoactive bowel sounds present, Soft to palpation, non-tender, No hepatosplenomegaly present and no masses AUSCULTATION: Yes normoactive bowel sounds PALPATION: Yes Soft to palpation and Yes No hepatosplenomegaly present RECTAL EXAM: deferred Extremity: COMMON NORMALS: no clubbing, cyanosis or edema and no pedal edema Neuro: COMMON NORMALS: patient oriented x3 Data : 10/08/20 06:17 10/10/20 05:26 A&P Assessment and plan (1) BRENDA (acute kidney injury): Related to dehydration, likely from recent increase in her diuretics, addition of hydrochlorothiazide, per discussion with daughter patient does not drink water and relies mainly on drinking sodas. All of this likely contributed to dehydration and BRENDA. Kidney function improved with IV hydration with normal saline. Urine output at 2500 cc over last 24 hours. Renal ultrasound without any signs of obstruction along the urinary tract. Unremarkable kidneys and bladder. Creatinine is now improved to 1.4 Status: Acute (2) Diabetes mellitus: resume ISS however patient is not currently requiring any insulin. She was hypoglycemic at home, and wonder if this precipitated her fall. She had been recently started on insulin 8 units of Lantus. HbA1c is much improved from 9 on last check to 7 on this current admission. Will discontinue insulin and glipizide upon discharge and continue Metformin only. Status: Acute Qualifiers: Diabetes mellitus type: type 2 Diabetes mellitus director long term care insulin use: without long-term use Diabetes mellitus complication status: without complication Qualified Code(s): E11.9 - Type 2 diabetes mellitus without complications (3) Ankle fracture, bimalleolar, closed: ortho consult appreciated, plan for OR on Sunday morning as patient continues to describe pain. Medically optimized for surgery at this present time given that dyspnea is much improved, no longer hypoglycemic, kidney function improved at 1.4. Given patient's current fracture, likely impaired mobility over the next few weeks, inability to care for herself at home, and deconditioning after last admission for Covid, SNF would be the most appropriate discharge plan for her. This is currently being worked on with case management. Status: Acute Qualifiers: Encounter type: initial encounter Laterality: unspecified laterality Qualified Code(s): S82.843A - Displaced bimalleolar fracture of unspecified lower leg, initial encounter for closed fracture (4) Fall: unclear if mechanical vs syncopal event vs hypoglycemia Status: Acute Additional A&P Information Sleep apnea: CPAP at nigth time On prednisone 30mg , converted from home dose of budesonide 9mg daily , states that she has this for chronic diarrhea , unclear if she has a diagnosis of Crohn's or microscopic colitis. Continuing steroids for now as she has been on this since 2019 and acute tapering may cause acute adrenal insufficiency. 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
[2020-10-11 16:50] LABS: Glucose Point of Care 238 mg/dL (70-110)
[2020-10-11] MEDS: enoxaparin 40 mg/0.4 mL Syringe SUBCUT (17:17)
[2020-10-11 20:59] LABS: Glucose Point of Care 238 mg/dL (70-110)
[2020-10-11] MEDS: ALPRAZolam 0.25 mg Tablet PO (22:04)
[2020-10-12] VITALS (23 sets, daily range): BP systolic 139–172; BP diastolic 63–90; PULSE 65–89; RESP 15–22; TEMP 36.1–37.5; O2SAT 94–100
--- NOTE | 2020-10-12 | XR_ITS ---
WS: [id number] C-ARM RADIOGRAPHS LEFT ANKLE; 5 IMAGES HISTORY: orif left ankle COMPARISON: 10/07/2020 Intraoperative fixation and stabilization of distal fibular and medial malleolus fractures. Hardware in good position in the fractures are in good alignment. Normal ankle mortise. XR/XR ankle LT min 3V* [id number] IMPRESSION: Intraoperative ORIF bimalleolar ankle fracture.
[2020-10-12] MEDS: ipratropium-albuterol 3 mL Neb INHALATION ×4 (03:08→23:32)
[2020-10-12 06:18] LABS: Basophils % 0.1 %; Eosinophils # 0.1 10^3/uL (0.0-0.8); Eosinophils % 0.9 %; Hematocrit 33.1 % (37.0-47.0); Hemoglobin 10.6 g/dL (11.5-15.3); Lymphocytes # 1.9 10^3/uL (0.8-4.8); Lymphocytes % 19.3 %; Mean Corpuscular Hemoglobin 34.1 pg (28.0-34.0); Mean Corpuscular Volume 106.4 fL (81-99); Mean Platelet Volume 10.1 fL (7.4-10.4); Monocytes # 0.7 10^3/uL (0.2-0.9); Monocytes % 6.8 %; Neutrophils # 7.06 10^3/uL (1.8-7.7); Neutrophils % 71.3 %; Nucleated Red Blood Cells % 0 %; Platelet Count 240 10^3/cmm (130-400); Red Blood Count 3.11 10^6/uL (4.1-5.3); Red Cell Distribution Width 14.1 % (12.1-15.1); White Blood Count 9.9 10^3/uL (4.0-10.0)
--- NOTE | 2020-10-12 06:21 | PC.NURSE ---
Patient left floor for surgery
--- NOTE | 2020-10-12 06:25 | PC.NURSE ---
Patient's bracelet and 4 rings were placed in a clear biohazard bag and then placed into patient's belonging white bag in room.
--- NOTE | 2020-10-12 06:34 | PC.NURSE ---
Patient off the floor.
[2020-10-12 06:40] LABS: Blood Urea Nitrogen 21 mg/dL (8-23); Calcium 9.1 mg/dL (8.5-10.5); Carbon Dioxide 30 mmol/L (22-29); Chloride 102 mmol/L (98-107); Glomerular Filtration Rate 41.2 mL/min (90-130); Glucose 96 mg/dL (65-115); Osmolality Calculated 297 mOsm/kg (285-295); Sodium 142 mmol/L (136-145)
[2020-10-12 06:41] LABS: Anion Gap 13.4 (5-19); Potassium 3.4 mmol/L (3.5-5.1)
--- NOTE | 2020-10-12 06:46 | W.PM.OPSUD ---
Surgery/Procedure H&P Update DATE OF PROCEDURE: October 12, 2020 DATE H&P PERFORMED: 10/08/20 H&P UPDATE INFORMATION: I have reviewed H&P completed within last 30 days, I have examined patient prior to procedure and No changes to prior documentation PLANNED PROCEDURE: Operation Date: 10/12/20 07:20 Proposed Procedures p Hind Foot Fusion Nail(Left) - Mac Calloway DO
--- NOTE | 2020-10-12 07:00 | ANES.PREANE2 ---
Pre-Anesthetic Assessment Pre-Anesthetic Assessment: Height/Weight: Height 1.6 m Weight 90.407 kg Temp Pulse Resp BP Pulse Ox 98.0 F 69 16 139/75 99 10/12/20 03:59 10/12/20 03:59 10/12/20 03:59 10/12/20 03:59 10/12/20 03:59 Proposed Procedure: Operation Date: 10/12/20 07:20 Proposed Procedures p Hind Foot Fusion Nail(Left) - Mac H Elli, DO Was Beta Nayeli taken within 24 hours: N/A Was Clonidine taken within 24 hours: N/A Social: Social History: Tobacco and No alcohol Exam: Pre-Anes Outpt Exam: alert, oriented x 3, clear to auscultation bilaterally and regular rate & rhythm Airway: Submandibular: Other (Receeding mandible with limited TMD ) Cervical ROM: WNL MP: 3 Pulmonary: Pulmonary: COPD CV/HEM: CV/HEM: HTN : : None reported Hepatic: Hepatic: None reported GI: GI: None reported Metabolic: Metabolic: DM, Hyperlipidemia and Thyroid Musc/skel: Musc/skel: Lower Back Pain Neuropsych: Neuropsych: None reported Anesthetic Plan: ASA status: 3 Anesthesia: General Meds/Allergies Current Medications: Current Medications Generic Name Dose Route Start Last Admin Trade Name Freq PRN Reason Stop Dose Admin Acetaminophen 650 mg 10/07/20 17:49 10/09/20 10:49 Acetaminophen 32 5 Mg Tablet PO 650 mg Q6H PRN Administration Mild Pain Or Temp >/= 101 Hydrocodone Bitart /Acetaminophen 1 tab 10/09/20 15:16 10/11/20 19:17 Hydrocodone-Acet aminophen 5-325 Mg Tablet PO 1 tab Q6H PRN Administration moderate Pain Albuterol/Ipratrop ium 3 ml 10/07/20 20:00 10/12/20 03:08 Ipratropium-Albu terol 3 Ml Neb INHALATION 3 ml Q4H.RESPIRATORY S CH Administration Alprazolam 0.25 mg 10/09/20 16:54 10/11/20 22:04 Alprazolam 0.25 Mg Tablet PO 0.25 mg TID PRN Administration ANXIETY Amlodipine Besylat e 10 mg 10/10/20 09:00 10/11/20 08:06 Amlodipine 10 Mg Tablet PO 10 mg DAILY FIOR Administration Atorvastatin Calci um 20 mg 10/10/20 09:00 10/11/20 08:06 Atorvastatin 40 Mg Tablet PO 20 mg DAILY FIOR Administration Cyclobenzaprine HC l 5 mg 10/09/20 15:18 10/10/20 11:41 Cyclobenzaprine 10 Mg Tablet PO 5 mg TID PRN Administration muscle spasm Docusate Sodium 100 mg 10/07/20 18:00 10/11/20 17:16 Docusate Sodium 100 Mg Capsule PO 100 mg BID FIOR Administration Enoxaparin Sodium 40 mg 10/09/20 18:00 10/11/20 17:17 Enoxaparin 40 Mg /0.4 Ml Syringe SUBCUT 40 mg Q24H FIOR Administration Gabapentin 300 mg 10/09/20 21:00 10/11/20 21:11 Gabapentin 300 M g Capsule PO 300 mg TID FIOR Administration Insulin Aspart 0 unit 10/09/20 08:00 10/11/20 21:11 Insulin Aspart 1 00 Unit/1 Ml SUBCUT 6 unit WM&BEDTIME FIOR Administration Protocol Levothyroxine Sodi um 100 mcg 10/08/20 09:00 10/11/20 08:06 Levothyroxine 10 0 Mcg Tablet PO 100 mcg DAILY FIOR Administration Pantoprazole Sodiu m 40 mg 10/08/20 09:00 10/11/20 08:[address] 40 Mg Tablet PO 40 mg DAILY FIOR Administration Prednisone 30 mg 10/08/20 11:45 10/11/20 08:07 Prednisone 10 Mg Tablet PO 30 mg DAILY FIOR Administration PFSH Anesthesia PFSH: Medical History (Updated 10/08/20 @ 17:55 by Anne Pedroza MD) Chronic low back pain Diabetes mellitus Encounter for long-term use of opiate analgesic Hyperlipidemia 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 Joint instability Lumbosacral spondylosis without myelopathy Paresthesia of bilateral legs Sacroiliac pain Spinal stenosis of lumbar region Surgical History S/P appendectomy Family History Grandmother Diabetes Cancer Grandfather Diabetes Cancer Social History Smoking and tobacco status: current every day smoker cigarettes Packs smoked per day: 1 [ Other cigarette details: DOWN FROM 1 PPD ] Alcohol intake: never Marital status: History of recent travel: No Data Anesthesia CBC & Chem 7: 10/12/20 05:45 10/12/20 05:45 Other Labs: Laboratory Results - last 48 hr 10/08/20 10/10/20 10/10/20 20:33 05:26 10:43 WBC RBC Hgb Hct MCV MCH MCHC RDW Plt Count MPV Neut % (Auto) Lymph % (Auto) [place] % (Auto) Eos % (Auto) Baso % (Auto) Neut # (Auto) Lymph # (Auto) [place] # (Auto) Eos # (Auto) Baso # (Auto) Nucleated RBC % (auto) Nucleated RBCs # Specimen Type Arterial Sample Site Brachial, left ABG pH 7.33 L ABG pCO2 46.5 H ABG pO2 81.4 ABG HCO3 24.7 ABG Base Excess -1.4 Bart Test N/a Hematocrit 32.6 L O2 Delivery Device Nc O2 Liters/Min 2.0 Ocean Export Agent ID Harkr Sodium Potassium Chloride Carbon Dioxide Anion Gap BUN 30 H Creatinine 1.4 H GFR Calculation 37.9 L Glucose POC Glucose 100 Calculated Osmolality 297 H Calcium Total Protein 5.3 L Albumin 3.0 L 10/10/20 10/10/20 10/11/20 16:35 21:05 06:07 WBC RBC Hgb Hct MCV MCH MCHC RDW Plt Count MPV Neut % (Auto) Lymph % (Auto) [place] % (Auto) Eos % (Auto) Baso % (Auto) Neut # (Auto) Lymph # (Auto) [place] # (Auto) Eos # (Auto) Baso # (Auto) Nucleated RBC % (auto) Nucleated RBCs # Specimen Type Sample Site ABG pH ABG pCO2 ABG pO2 ABG HCO3 ABG Base Excess Bart Test Hematocrit O2 Delivery Device O2 Liters/Min Ocean Export Agent ID Sodium Potassium Chloride Carbon Dioxide Anion Gap BUN Creatinine GFR Calculation Glucose POC Glucose 274 H 229 H 105 Calculated Osmolality Calcium Total Protein Albumin 10/11/20 10/11/20 10/11/20 10:30 16:43 20:41 WBC RBC Hgb Hct MCV MCH MCHC RDW Plt Count MPV Neut % (Auto) Lymph % (Auto) [place] % (Auto) Eos % (Auto) Baso % (Auto) Neut # (Auto) Lymph # (Auto) [place] # (Auto) Eos # (Auto) Baso # (Auto) Nucleated RBC % (auto) Nucleated RBCs # Specimen Type Sample Site ABG pH ABG pCO2 ABG pO2 ABG HCO3 ABG Base Excess Bart Test Hematocrit O2 Delivery Device O2 Liters/Min Ocean Export Agent ID Sodium Potassium Chloride Carbon Dioxide Anion Gap BUN Creatinine GFR Calculation Glucose POC Glucose 237 H 238 H 238 H Calculated Osmolality Calcium Total Protein Albumin 10/12/20 10/12/20 05:45 05:45 WBC 9.9 RBC 3.11 L Hgb 10.6 L Hct 33.1 L MCV 106.4 H MCH 34.1 H MCHC 32.0 RDW 14.1 Plt Count 240 MPV 10.1 Neut % (Auto) 71.3 Lymph % (Auto) 19.3 [place] % (Auto) 6.8 Eos % (Auto) 0.9 Baso % (Auto) 0.1 Neut # (Auto) 7.06 Lymph # (Auto) 1.9 [place] # (Auto) 0.7 Eos # (Auto) 0.1 Baso # (Auto) 0.0 Nucleated RBC % (auto) 0 Nucleated RBCs # 0.0 Specimen Type Sample Site ABG pH ABG pCO2 ABG pO2 ABG HCO3 ABG Base Excess Bart Test Hematocrit O2 Delivery Device O2 Liters/Min Ocean Export Agent ID Sodium 142 Potassium 3.4 L Chloride 102 Carbon Dioxide 30 H Anion Gap 13.4 BUN 21 Creatinine 1.3 H GFR Calculation 41.2 L Glucose 96 POC Glucose Calculated Osmolality 297 H Calcium 9.1 Total Protein Albumin Cardiac Studies: No Data to Display
[2020-10-12] MEDS: sodium chloride 0.9% 1,000 ML 30 ML IV (07:12)
--- NOTE | 2020-10-12 07:56 | PC.RESP ---
Medication on hold this am.
--- NOTE | 2020-10-12 08:18 | P.OP_ITS ---
Operative Report Date of procedure: October 12, 2020 Pre-op Diagnosis: Left ankle fracture Bi malleolar Post-op diagnosis: same Procedure Done: ORIF left Bi malleolar ankle fracture Surgeon: Mac Calloway Anesthesia: General Estimated blood loss (mL): 5 Condition: stable Disposition: PACU Procedure: Patient was brought to the operative suite placed in the supine position. All areas of pressure were padded. Patient was then prepped and draped in a sterile fashion. Skin incision made over the left lateral malleolus. Fracture was identified reduced and a [place] fibular plate was placed 4 locking screws placed distally. And a cortical screw was placed proximally. Was brought to the medial side. The fracture was reduced into partially- threaded cannulated screws were placed after the fracture was reduced. She was brought back to the lateral side. Multiple symptoms maskers were placed in a ladder technique fashion. Then 1 more cortical screw was placed. Once all this was completed then wounds were irrigated and closed with Vicryl and nylon suture. Sterile dressings applied patient was placed in a posterior splint and transferred to the PACU in stable condition.
--- NOTE | 2020-10-12 09:39 | PM.PN ---
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
[2020-10-12] MEDS: FUROsemide 20 mg Tablet PO (09:51)
[2020-10-12] MEDS: HYDROcodone-acetaminophen 5-325 mg Tablet 1 TAB PO ×2 (09:51→18:30)
[2020-10-12] MEDS: potassium chloride ER 20 mEq Tablet PO (09:51)
[2020-10-12] MEDS: lisinopril 20 mg Tablet PO (09:51)
[2020-10-12] MEDS: hydroCHLOROthiazide 25 mg Tablet 37.5 MG PO (09:51)
--- NOTE | 2020-10-12 09:56 | PC.NURSE ---
Called Dr Calloway patient has order for Lovenox and Eliquis. Need to clarify if he wants Lovenox or Eliquis. Per Dr Calloway, Talk to hospitalist about the Eliquis and Lovenox order for their recommendation. Property Site Manager talked to Dr Edwards, Per Dr Edwards, give lovenox today and restart eliquis tomorrow. Property Site Manager put orders in
[2020-10-12 10:35] LABS: Glucose Point of Care 280 mg/dL (70-110)
--- NOTE | 2020-10-12 10:39 | SCC_ITS ---
Procedure Done: ORIF left Bi malleolar ankle fracture 47.8 seconds of fluoroscopic guidance, for a cumulative dose of 1.43 mGy, was provided to Dr. Calloway by the radiology department. C-arm images of the ankle were saved for the patient's permanent record. [facility]
--- NOTE | 2020-10-12 10:45 | PC.SOCIAL ---
Pg 2 IMM Explained to pt Pg 2 IMM. No questions voiced. Provided pt a copy. Signed, dated, & timed a copy & placed in chart.
[2020-10-12] MEDS: cyclobenzaprine 10 mg Tablet 5 MG PO ×2 (11:00→22:53)
--- NOTE | 2020-10-12 11:32 | PM.PN ---
Subjective Subjective: Interval history: No acute event overnight. Patient was seen and examined this morning. S/P ORIF left Bi malleolar ankle fracture. Medications: Reviewed: Yes Vitals/I&O/Wt Last Vital Signs Temp 97.4 F L 10/12/20 09:00 Pulse 65 10/12/20 09:00 Resp 16 10/12/20 09:00 BP 160/70 10/12/20 09:00 Pulse Ox 96 10/12/20 09:00 10/11/20 10/12/20 10/12/20 22:59 06:59 14:59 Intake Total 240 / 1200 191.5 / 191.5 Output Total 450 / 450 250 / 700 10 / 10 Balance -450 / 510 -10 / 500 181.5 / 181.5 Physical Exam Const: COMMON NORMALS: patient oriented x3 HENMT: COMMON NORMALS: normocephalic and atraumatic HEAD & SCALP: normocephalic and atraumatic Chest: CHEST: Yes Symmetrical chest wall rise Resp: COMMON NORMALS: clear to auscultation bilaterally AUSCULTATION: clear to auscultation bilaterally Cardio: COMMON NORMALS: regular rate, regular rhythm, S1 normal heart sound present, S2 normal heart sound present, No gallops present (Cardio), No murmurs present (Cardio), No rub (Cardio) and Peripheral pulses 2+ throughout RATE: regular rate RHYTHM: regular rhythm HEART SOUNDS: S1 normal heart sound present and S2 normal heart sound present PERIPHERAL PULSES: Peripheral pulses 2+ throughout GI: COMMON NORMALS: Normal to inspection, nondistended, normoactive bowel sounds present, Soft to palpation, non-tender, No hepatosplenomegaly present and no masses AUSCULTATION: Yes normoactive bowel sounds PALPATION: Yes Soft to palpation and Yes No hepatosplenomegaly present RECTAL EXAM: deferred Extremity: COMMON NORMALS: no clubbing, cyanosis or edema and no pedal edema Neuro: COMMON NORMALS: patient oriented x3 Data : 10/12/20 05:45 10/12/20 05:45 A&P Assessment and plan (1) BRENDA (acute kidney injury): Related to dehydration, likely from recent increase in her diuretics, addition of hydrochlorothiazide, per discussion with daughter patient does not drink water and relies mainly on drinking sodas. All of this likely contributed to dehydration and BRENDA. Kidney function improved with IV hydration with normal saline. Urine output at 2500 cc over last 24 hours. Renal ultrasound without any signs of obstruction along the urinary tract. Unremarkable kidneys and bladder. Creatinine is now improved to 1.4 Status: Acute (2) Diabetes mellitus: resume ISS however patient is not currently requiring any insulin. She was hypoglycemic at home, and wonder if this precipitated her fall. She had been recently started on insulin 8 units of Lantus. HbA1c is much improved from 9 on last check to 7 on this current admission. Will discontinue insulin and glipizide upon discharge and continue Metformin only. Status: Acute Qualifiers: Diabetes mellitus complication status: without complication Diabetes mellitus correction insulin use: without superintendent container terminal use Diabetes mellitus type: type 2 Qualified Code(s): E11.9 - Type 2 diabetes mellitus without complications (3) Ankle fracture, bimalleolar, closed: S/P ORIF for left Bi malleolar ankle fracture. ( 10/12) ortho consult appreciated Medically optimized for surgery at this present time given that dyspnea is much improved, no longer hypoglycemic, kidney function improved at 1.4. Given patient's current fracture, likely impaired mobility over the next few weeks, inability to care for herself at home, and deconditioning after last admission for Cov[facility], SNF would be the most appropriate discharge plan for her. This is currently being worked on with case management. Status: Acute Qualifiers: Encounter type: initial encounter Laterality: unspecified laterality Qualified Code(s): S82.843A - Displaced bimalleolar fracture of unspecified lower leg, initial encounter for closed fracture (4) Fall: unclear if mechanical vs syncopal event vs hypoglycemia Status: Acute Additional A&P Information Sleep apnea: CPAP at nigth time On prednisone 30mg , converted from home dose of budesonide 9mg daily , states that she has this for chronic diarrhea , unclear if she has a diagnosis of Crohn's or microscopic colitis. Continuing steroids for now as she has been on this since 2019 and acute tapering may cause acute adrenal insufficiency. DVT prophylaxis: Lovenox Full code Attestations Medical Necessity Statement*: Patient needs to be in hospital for the management of ankle fracture. Coding Level of Care Code Acute Iv Therapy Nurse for [facility] Fwd Exam Detailed Diagnoses BRENDA (acute kidney injury) N17.9 Diabetes mellitus E11.9 Diabetes mellitus complication status: without complication Diabetes mellitus superintendent container terminal insulin use: without superintendent container terminal use Diabetes mellitus type: type 2 Ankle fracture, bimalleolar, closed S82.847J Encounter type: initial encounter Laterality: unspecified laterality Fall W19.XXXA
--- NOTE | 2020-10-12 11:45 | PC.NURSE ---
notified Dr Edwards that patient's blood pressure is 172/72. Patient was given [place] at 0951 and it is Q6H. She was given flexeril at 1100. She is still complaining of pain. She did not get her morning dose of norvasc, lipitor, synthroid, protonix or prednissone today. after surgery they were on MAR to give tomorrow at 0900. She did have lasix, hctz, lisinopril and potassium this morning when she returned to floor from surgery. Per Dr Edwards, give her dose of norvasc 10mg now. [employer] Truck Driver put order in.
[2020-10-12] MEDS: amlodipine 10 mg Tablet PO (12:39)
[2020-10-12] MEDS: acetaminophen 325 mg Tablet 650 MG PO (13:05)
--- NOTE | 2020-10-12 13:43 | ANE.PACU2 ---
Inpatient post-anesthesia follow up: Airway intact: Yes Vital signs: Temperature 98.3 F Pulse Rate 76 Respiratory Rate 18 Blood Pressure 157/76 Pulse Oximetry 98 Oxygen Delivery Me thod Nasal Cannula Oxygen Flow Rate 3 Fraction of Inspir ed Oxygen 2 Hydration adequate: Yes Nausea and vomiting: No Pain level: 2 Mental status: Baseline
[2020-10-12] MEDS: gabapentin 300 mg Capsule PO ×2 (14:14→21:18)
[2020-10-12 17:01] LABS: Glucose Point of Care 240 mg/dL (70-110)
[2020-10-12] MEDS: insulin glargine 100 units/1 mL 8 UNIT SUBCUT (18:29)
[2020-10-12] MEDS: metformin 500 mg Tablet 1000 MG PO (18:30)
[2020-10-12] MEDS: enoxaparin 40 mg/0.4 mL Syringe SUBCUT (18:30)
[2020-10-12] MEDS: docusate sodium 100 mg Capsule PO (18:30)
[2020-10-12 20:40] LABS: Glucose Point of Care 241 mg/dL (70-110)
[2020-10-12] MEDS: ALPRAZolam 0.25 mg Tablet PO (23:38)
[2020-10-13] VITALS (13 sets, daily range): BP systolic 134–170; BP diastolic 75–82; PULSE 69–107; RESP 16–18; TEMP 36.2–36.9; O2SAT 90–99
[2020-10-13] MEDS: HYDROcodone-acetaminophen 5-325 mg Tablet 1 TAB PO ×3 (00:25→11:59)
[2020-10-13] MEDS: ipratropium-albuterol 3 mL Neb INHALATION ×3 (03:10→12:58)
[2020-10-13 06:20] LABS: Basophils % 0.1 %; Eosinophils # 0.1 10^3/uL (0.0-0.8); Eosinophils % 0.7 %; Hematocrit 31.9 % (37.0-47.0); Hemoglobin 10.2 g/dL (11.5-15.3); Lymphocytes # 2.1 10^3/uL (0.8-4.8); Lymphocytes % 17.4 %; Mean Corpuscular Hemoglobin 33.3 pg (28.0-34.0); Mean Corpuscular Volume 104.2 fL (81-99); Mean Platelet Volume 9.8 fL (7.4-10.4); Monocytes % 8.1 %; Neutrophils # 8.45 10^3/uL (1.8-7.7); Neutrophils % 71.7 %; Nucleated Red Blood Cells % 0 %; Platelet Count 227 10^3/cmm (130-400); Red Blood Count 3.06 10^6/uL (4.1-5.3); Red Cell Distribution Width 14.1 % (12.1-15.1); White Blood Count 11.8 10^3/uL (4.0-10.0)
[2020-10-13 06:33] LABS: Glucose Point of Care 130 mg/dL (70-110)
[2020-10-13 06:37] LABS: Anion Gap 12.2 (5-19); Blood Urea Nitrogen 21 mg/dL (8-23); Calcium 8.3 mg/dL (8.5-10.5); Carbon Dioxide 30 mmol/L (22-29); Chloride 101 mmol/L (98-107); Glomerular Filtration Rate 41.2 mL/min (90-130); Glucose 130 mg/dL (65-115); Osmolality Calculated 295 mOsm/kg (285-295); Potassium 3.2 mmol/L (3.5-5.1); Sodium 140 mmol/L (136-145)
--- NOTE | 2020-10-13 10:02 | PC.CHAP ---
Pastoral Care Encounter/Spiritual Assessment Type of Contact [] Declined concrete saw operator visit [] Patient/Family/Request visit [] Outpatient visit [] Follow-up visit [] Physician referral [] Code/Alert [x] Routine visit [] Staff referral [] Actively dying [] Patient sleeping [] Family support [] [] Out of room [] Palliative care [] [] Receiving care in room [] Pre-surgical visit [] Trauma [] Long length of stay [] ICU visit [] Other: Relational/Emotional Strength [x] Patient feels connected with others/family/visitors/staff [] Distress [] Loneliness/isolation [] Abandonment Spirituality of Patient [x] Person of Jinny [x] Attends Islam of their Jinny [] Believes in Prayer [] Reads Bible or Yazidism materials [] There are Spiritual issues to be addressed Vegetable Farmworker Interventions [x] Prayer [x] Active listening [x] Non-anxious presence [] Spiritual/emotional support [] Crisis/trauma care [] Spiritual counseling [] Bereavement support [] Provided bereavement packet [] Provided Bible/devotional materials [] Provided toy/stuffed animal, coloring book to patient or family member [] Provided Communion [] Anointing/[place] [] Salvation [x] Completed spiritual assessment [] Other: Impact on Illness or Injury [] Angry [] Fearful [] Anxious [] Often cries [] Exhaustion [] Unable to work [] Unable to attend yazdanism [] Unable to walk/stand [] Unable to read [] Unable to drive [] Unable to eat/drink [] Unable to sleep [] Unable to be with family [] Patient intubated [] Other: Summary patient doing nbetter Time spent with patient 10 min
[2020-10-13 10:19] LABS: Glucose Point of Care 158 mg/dL (70-110)
[2020-10-13] MEDS: cyclobenzaprine 10 mg Tablet 5 MG PO (10:51)
[2020-10-13] MEDS: apixaban 5 mg Tablet 2.5 MG PO (10:52)
[2020-10-13] MEDS: potassium chloride ER 20 mEq Tablet PO (10:53)
[2020-10-13] MEDS: gabapentin 300 mg Capsule PO ×2 (10:54→14:35)
[2020-10-13] MEDS: predniSONE 10 mg Tablet 30 MG PO (10:54)
[2020-10-13] MEDS: metformin 500 mg Tablet 1000 MG PO (10:55)
[2020-10-13] MEDS: levothyroxine 100 mcg Tablet PO (10:55)
[2020-10-13] MEDS: acetaminophen 325 mg Tablet 650 MG PO (10:56)
[2020-10-13] MEDS: atorvastatin 40 mg Tablet 20 MG PO (10:57)
[2020-10-13] MEDS: amlodipine 10 mg Tablet PO (10:59)
[2020-10-13] MEDS: pantoprazole DR 40 mg Tablet PO (10:59)
[2020-10-13] MEDS: docusate sodium 100 mg Capsule PO (11:00)
--- NOTE | 2020-10-13 11:41 | P.DS_ITS ---
Discharge Providers Date of Admission: 10/07/20 15:11 Date of Discharge: October 13, 2020 Attending Provider at Admission: Anne Pedroza MD Attending Provider at Discharge: Erich Edwards MD Primary Care Provider: ANDREA Sargent Diagnoses at Discharge Discharge Diagnosis (1) BRENDA (acute kidney injury): Status: Resolved (2) Diabetes mellitus: Status: Chronic Qualifiers: Diabetes mellitus complication status: without complication Diabetes mellitus retirement insulin use: without retirement use Diabetes mellitus type: type 2 Qualified Code(s): E11.9 - Type 2 diabetes mellitus without compl ications (3) Ankle fracture, bimalleolar, closed: Status: Acute Qualifiers: Encounter type: initial encounter Laterality: unspecified laterality Qualified Code(s): S82.843A - Displaced bimalleolar fracture of unspecified lower leg, initial encounter for closed fracture Reason for Visit Reason for Visit: ANKLE FX SURGERY Hospital Course Hospital Course 65-year-old lady F with PMH of Chronic low back pain Diabetes mellitus, 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 , Joint instability, Lumbosacral spondylosis without myelopathy, Paresthesia of bilateral legs, Sacroiliac pain , Spinal stenosis of lumbar region was admitted after presenting to [facility] with a fall at home, admitted for lt Ankle fracture, bimalleolar, closed:S/P ORIF for left Bi malleolar ankle fracture.During the hospital stay she was also managed for Prerenal BRENDA ON CKD , admission creatinine was up to 3.5, resolved with fluids, creatinine now trending down.Home medications ( lasix, lisniopril and HCTZ has been held for a week ).She chronically on prednisone states that she has this for chronic diarrhea , unclear if she has a diagnosis of Crohn's or microscopic colitis. Prednisone was continued. Patient responded well to the above medical management and is being discharged in stable condition to home with [facility].Patient will continue to follow ortho as outpatient. Physical Exam Const: COMMON NORMALS: patient oriented x3 HENMT: COMMON NORMALS: normocephalic and atraumatic HEAD & SCALP: normocephalic and atraumatic Chest: CHEST: Yes Symmetrical chest wall rise Resp: COMMON NORMALS: clear to auscultation bilaterally AUSCULTATION: clear to auscultation bilaterally Cardio: COMMON NORMALS: regular rate, regular rhythm, S1 normal heart sound present, S2 normal heart sound present, No gallops present (Cardio), No murmurs present (Cardio), No rub (Cardio) and Peripheral pulses 2+ throughout RATE: regular rate RHYTHM: regular rhythm HEART SOUNDS: S1 normal heart sound present and S2 normal heart sound present PERIPHERAL PULSES: Peripheral pulses 2+ throughout GI: COMMON NORMALS: Normal to inspection, nondistended, normoactive bowel sounds present, Soft to palpation, non-tender, No hepatosplenomegaly present and no masses AUSCULTATION: Yes normoactive bowel sounds PALPATION: Yes Soft to palpation and Yes No hepatosplenomegaly present RECTAL EXAM: deferred Extremity: COMMON NORMALS: no clubbing, cyanosis or edema and no pedal edema Neuro: COMMON NORMALS: patient oriented x3 Discharge Data Data Completed and Pending: Completed Studies During Hospitalization Category Date Time Status XR ankle LT min 3 V* [id number] Routine Exams 10/12/20 Completed XR chest 1V john ble [id number] Routine Exams 10/07/20 17:54 Completed US renal BI* [id number] Routine Ultrasound 10/09/20 17:54 Completed Labs from last 24 hours 10/13/20 10/13/20 10/13/20 10:12 06:24 06:04 WBC RBC Hgb Hct MCV MCH MCHC RDW Plt Count MPV Neut % (Auto) Lymph % (Auto) [place] % (Auto) Eos % (Auto) Baso % (Auto) Neut # (Auto) Lymph # (Auto) [place] # (Auto) Eos # (Auto) Baso # (Auto) Nucleated RBC % (a uto) Nucleated RBCs # Sodium 140 Potassium 3.2 L Chloride 101 Carbon Dioxide 30 H Anion Gap 12.2 BUN 21 Creatinine 1.3 H GFR Calculation 41.2 L Glucose 130 H POC Glucose 158 H 130 H Calculated Osmolal ity 295 Calcium 8.3 L 10/13/20 10/12/20 10/12/20 06:04 20:34 16:48 WBC 11.8 H RBC 3.06 L Hgb 10.2 L Hct 31.9 L MCV 104.2 H MCH 33.3 MCHC 32.0 RDW 14.1 Plt Count 227 MPV 9.8 Neut % (Auto) 71.7 Lymph % (Auto) 17.4 [place] % (Auto) 8.1 Eos % (Auto) 0.7 Baso % (Auto) 0.1 Neut # (Auto) 8.45 H Lymph # (Auto) 2.1 [place] # (Auto) 1.0 H Eos # (Auto) 0.1 Baso # (Auto) 0.0 Nucleated RBC % (a uto) 0 Nucleated RBCs # 0.0 Sodium Potassium Chloride Carbon Dioxide Anion Gap BUN Creatinine GFR Calculation Glucose POC Glucose 241 H 240 H Calculated Osmolal ity Calcium Vitals: Last Vital Signs Temp 97.9 F 10/13/20 10:35 Pulse 93 10/13/20 10:35 Resp 17 10/13/20 10:35 BP 140/76 10/13/20 10:35 Pulse Ox 96 10/13/20 10:35 Discharge Plan Discharge Patient Disposition: Home Condition: Stable Prescriptions: New hydrocodone-acetaminophen 5-325 mg tablet 1 tab PO Q6H PRN (Reason: pain) Qty: 10 RF: 0 Continued trazodone 150 mg tablet 150 mg PO BEDTIME RF: 0 glipizide 5 mg tablet extended release 24hr 5 mg PO .BREAKFAST & LUNCH RF: 0 tramadol 50 mg tablet 100 mg PO BID PRN (Reason: pain) 30 Days Qty: 120 RF: 0 venlafaxine 100 mg tablet 100 mg PO BID RF: 0 levothyroxine 100 mcg capsule 100 mcg PO DAILY RF: 0 venlafaxine 25 mg tablet 25 mg PO BID RF: 0 simvastatin 20 mg tablet 20 mg PO BID RF: 0 budesonide 3 mg capsule,delayed,extend.release 3 mg PO TID RF: 0 cyclobenzaprine 10 mg tablet 10 mg PO TID PRN (Reason: muscle spasm) 30 Days Qty: 90 RF: 1 gabapentin 300 mg capsule 300 mg PO TID 30 Days Qty: 90 RF: 1 magnesium chloride [Mag 64] 64 mg tablet,delayed release (DR/EC) 64 mg PO DAILY Qty: 90 RF: 3 metformin 1,000 mg tablet 1,000 mg PO BID RF: 0 Eliquis 2.5 mg Tablet 2.5 mg PO BID RF: 0 hydrocodone-acetaminophen 5-325 mg Tablet 1 tab PO Q6H PRN (Reason: Pain) Qty: 15 RF: 0 albuterol sulfate [Ventolin HFA] 90 mcg/actuation Hfa Aerosol Inhaler 2 puff inhalation Q4H.RESPIRATORY PRN (Reason: Shortness Of Breath) Qty: 18 RF: 0 amlodipine 5 mg tablet 5 mg PO DAILY Qty: 90 RF: 3 Lantus Solostar U-100 Insulin 100 unit/mL (3 mL) insulin pen 8 unit SUBCUT QPM Qty: 15 RF: 0 Held furosemide 20 mg tablet 20 mg PO DAILY Qty: 30 RF: 1 Hold Instructions: Resume on 10/20/20. potassium chloride 20 mEq tablet extended release 20 meq PO DAILY Qty: 30 RF: 2 Hold Instructions: Resume on 10/20/20. hydrochlorothiazide 12.5 mg tablet 37.5 mg PO DAILY RF: 0 Hold Instructions: Resume on 10/20/20. lisinopril 20 mg tablet 20 mg PO DAILY RF: 0 Hold Instructions: Resume on 10/20/20. Discharge Orders: Discharge Order (Routine); Ordered 10/13/20 Ordered By: Erich Edwards Referrals: Mac Calloway DO [Physician] - 10/21/20 10:45 am Discharge Diet: Diabetic Discharge Activity: Increase activity as tolerated Patient Instructions: Type 2 Diabetes, Ankle Fracture (DC), Ankle Fracture (GEN), Fall Prevention (DC), Opioid Safety Activity Restrictions/Additional Instructions: You are being discharged from the hospital today during which time you have been under the care of Dr. Calloway. You had a left ankle fracture. You were treated for this injury with open reduction internal fixation.. You may resume you normal diet (including any special diets as directed by your primary doctor) as well as your home medications. You should follow up with you primary doctor if you have any questions regarding medication you took prior to your stay in the hospital. You may take your pain medication as prescribed. After the first few days, take your pain medication as needed. Do not drive or drink alcohol while taking your pain medication. Your injury may increase your risk of developing a blood clot,or DVT, in your arm or leg. This could potentially dislodge and travel to your lungs and become a life threatening condition called apulmonary embolus,or PE. You have been prescribed Eliquis to be taken to prevent this. Frequent movement of the knee and hip will also help prevent this from occurring. If you develop any new or worsening cough, chestpain, bloody sputum or shortness of breath, call 911 or go to the EmergencyRoom. Always keep your surgical incision/dressing clean and dry. If you experience increasing pain at your incision site, redness, swelling, increasing discharge, foul odors, or fevers (greater than 100.4), night sweats or chills you should call the office at the above number. If you feel this is an emergency you should be evaluated in the Emergency Department of a nearby hospital. Orthopedic Patient Instructions Summary: Weight Bearing: Nonweightbearing left lower extremity for 12 weeks Activity: As tolerated. Diet: As before. Splint Care: Keep splint clean and dry. Cover with a plastic bag for bathing. Wound Care: Keep dressing clean and dry. Anticoagulation: Eliquis Pain Medication: Take only as needed. Ice, rest and elevation will be of great benefit. Please plan to follow-up narendra Medel [] in [] weeks. You will need to call the clinic [phone] to schedule this visit. Thank you far allowing me to participate in your care. Do not hesitate to call the office with any questions or concerns. Discharge Attestations Time Spent in Discharge Care*: less than 30 min Specific Discharge Activities: educating patient, educating and/or supporting family/caregiver, discussing with case making machine operator/social workers/dc planners, documenting/other paperwork and evaluating patient/reviewing data Status at Discharge: Cognitive status at discharge: cognitively intact , Behavioral status at discharge: cooperative , Functional status at discharge: other assisted ambulation Overall status at discharge: patient is back to baseline Quality Metrics Clinical Quality Measures During this hospital stay, did patient experience: None Coding Level of Care Code Acute [facility] note Diagnoses BRENDA (acute kidney injury) N17.9 Diabetes mellitus E11.9 Diabetes mellitus complication status: without complication 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
[2020-10-13 16:22] LABS: Glucose Point of Care 256 mg/dL (70-110)
== END 2020-10-13 17:38 | disposition home health service (06) | DRG 493 ==
PROVIDERS: Internal Medicine; Orthopaedic Surgery; Admitting Provider Student in an Organized Health Care Education/Training Program; PCP Nurse Practitioner Family; Visit Provider Internal Medicine
PROC: 0QSK04Z Reposition Left Fibula with Internal Fixation Device, Open Approach (ICD-10-PCS; principal; 2020-10-12 07:00)
DX: S82.842A Displaced bimalleolar fracture of left lower leg, initial encounter for closed fracture (principal); N17.9 Acute kidney failure, unspecified; E86.0 Dehydration; E78.5 Hyperlipidemia, unspecified; G47.30 Sleep apnea, unspecified; E11.649 Type 2 diabetes mellitus with hypoglycemia without coma; W19.XXXA Unspecified fall, initial encounter; Y92.009 Unspecified place in unspecified non-institutional (private) residence as the place of occurrence of the external cause; Y99.9 Unspecified external cause status
CPT/HCPCS: 36415; 36416; 36600; 71045; 73610; 76000; 76770; 80048; 80053; 80306; 81001; 82436; 82550; 82803; 82962; 83036; 83880; 84133; 84146; 84300; 84443; 85025; 93005; 94640; 94660; 94664; 96372; 97161; 97165; 97530; 97535; C1713; J0690; J1100; J1170; J1650; J1815 ×2; J2060; J2405; J2704; J3010; J3490; J7030; J7512

== ENCOUNTER → 2020-10-19 12:55 | Outpatient (BNVA) | payer MEDICARE, MEDICAID, SELFPAY | PROVIDERS: PCP Nurse Practitioner Family; Visit Provider Nurse Practitioner | DX: G89.29 Other chronic pain (principal); M48.061 Spinal stenosis, lumbar region without neurogenic claudication; M51.06 Intervertebral disc disorders with myelopathy, lumbar region; M47.817 Spondylosis without myelopathy or radiculopathy, lumbosacral region; M53.3 Sacrococcygeal disorders, not elsewhere classified; R20.2 Paresthesia of skin; F17.210 Nicotine dependence, cigarettes, uncomplicated; Z79.891 Long term (current) use of opiate analgesic | CPT/HCPCS: 99214 ==

== ENCOUNTER 2020-10-21 15:01 | Outpatient (CLI) | payer MEDICARE, MEDICAID, SELFPAY | END 2020-10-21 15:02 | disposition home or self-care (01) | LOC: SPT 15:05 | PROVIDERS: PCP Nurse Practitioner Family; Visit Provider Orthopaedic Surgery | DX: Z46.89 Encounter for fitting and adjustment of other specified devices (principal); S82.842D Displaced bimalleolar fracture of left lower leg, subsequent encounter for closed fracture with routine healing; X58.XXXD Exposure to other specified factors, subsequent encounter | CPT/HCPCS: 97760; L4361 ==

== ENCOUNTER → 2020-11-25 13:15 | Outpatient (BNVA) | payer MEDICARE, MEDICAID, SELFPAY | PROVIDERS: PCP Nurse Practitioner Family; Visit Provider Orthopaedic Surgery | DX: Z48.89 Encounter for other specified surgical aftercare (principal) | CPT/HCPCS: 73610 ==

== ENCOUNTER → 2020-12-09 13:52 | Outpatient (BNVA) | payer MEDICARE, MEDICAID, SELFPAY | PROVIDERS: PCP Nurse Practitioner Family; Visit Provider Nurse Practitioner | DX: G89.29 Other chronic pain (principal); M51.06 Intervertebral disc disorders with myelopathy, lumbar region; M48.061 Spinal stenosis, lumbar region without neurogenic claudication; M47.817 Spondylosis without myelopathy or radiculopathy, lumbosacral region; M53.3 Sacrococcygeal disorders, not elsewhere classified; F17.210 Nicotine dependence, cigarettes, uncomplicated; Z79.891 Long term (current) use of opiate analgesic | CPT/HCPCS: 99213; 99214 ==

== ENCOUNTER → 2020-12-21 16:38 | Outpatient (BNVA) | payer MEDICARE, MEDICAID, SELFPAY | PROVIDERS: PCP Nurse Practitioner Family; Visit Provider Internal Medicine Cardiovascular Disease | DX: N17.9 Acute kidney failure, unspecified (principal); E87.6 Hypokalemia; R42 Dizziness and giddiness; I10 Essential (primary) hypertension; E78.2 Mixed hyperlipidemia; M54.5 Low back pain; G89.29 Other chronic pain; E11.9 Type 2 diabetes mellitus without complications | CPT/HCPCS: 80053; 83735; 83880 ==

== ENCOUNTER → 2021-01-06 13:31 | Outpatient (BNVA) | payer MEDICARE, MEDICAID, SELFPAY | PROVIDERS: PCP Nurse Practitioner Family; Visit Provider Orthopaedic Surgery | DX: Z48.89 Encounter for other specified surgical aftercare (principal) | CPT/HCPCS: 73610 ==